=== PATIENT | male | born 1955 | race Caucasian/White ===

== ENCOUNTER 2023-03-23 22:51 | Inpatient (IN) | payer OTHER, MEDICARE ==
[2023-03-23] MEDS ORDERED: SODIUM CHLORIDE IV ONE (23:28)
[2023-03-24] MEDS ORDERED: VANCOMYCIN 1 GM in D5W (PRE-DOCKED) 1,000 MG/250 ML (RESTRICTED TO ID ONLY IVPB ONE (00:28)
[2023-03-24] MEDS ORDERED: VANCOMYCIN/WATER FOR INJ (PEG) 1,000 MG/200 ML BAG IVPB ONE (00:29)
[2023-03-24 00:34] LABS: VENOUS BASE EXCESS 2.8 mmol/L (-2-2); VENOUS O2 SATURATION 80.4 % (70-80); VENOUS PCO2 39.6 mmHg (38-52); VENOUS PH 7.451 (7.310-7.410)
[2023-03-24 00:36] LABS: HEMATOCRIT 24.2 % (35.4-49); HEMOGLOBIN 7.8 GM/dL (11.7-16.9); MCH 27.1 pg (25.7-33.7); MCHC 32.1 g/dl (32.0-35.9); MEAN CELL VOLUME 84.6 fl (80-96); MEAN PLT VOLUME 8.3 fl (7.5-11.1); PLATELET COUNT 380 10^3/uL (134-434); RBC 2.86 M/mm3 (4.00-5.60); RDW 16.8 % (11.9-15.9); WHITE BLOOD COUNT 6.6 K/mm3 (4.0-10.0)
[2023-03-24] MEDS ORDERED: ACETAMINOPHEN 1000 MG/100 ML BAG IVPB ONE (00:45)
[2023-03-24 00:52] LABS: CHLORIDE 105 mmol/L (98-107); POTASSIUM 4.9 mmol/L (3.5-5.1); SODIUM 141 mmol/L (136-145)
[2023-03-24 00:54] LABS: CALCIUM 8.3 mg/dL (8.5-10.1)
[2023-03-24 00:55] LABS: ALBUMIN 1.4 g/dl (3.4-5.0); ANION GAP 10 MMOL/L (8-16); BLOOD UREA NITROGEN 52.3 mg/dL (7-18); CO2 25 mmol/L (21-32)
[2023-03-24 00:58] LABS: CREATININE 1.3 mg/dL (0.55-1.3); SGOT/AST 16 U/L (15-37); SGPT/ALT 14 U/L (13-61)
[2023-03-24 00:59] LABS: BILIRUBIN,TOTAL 0.4 mg/dL (0.2-1)
[2023-03-24] MEDS ORDERED: ACETAMINOPHEN INJECTION 100 ML IVPB ONE (00:59)
[2023-03-24 01:00] LABS: TOT PROT 4.3 g/dl (6.4-8.2)
[2023-03-24 01:01] LABS: ALK PHOS 104 U/L (45-117)
[2023-03-24 01:08] LABS: GLUCOSE,RANDOM 451 mg/dL (74-106); LACTIC ACID 5.5 mmol/L (0.4-2.0)
[2023-03-24 01:51] LABS: ANISOCYTOSIS 2+; MACROCYTOSIS 0; OVALOCYTE 2+; TEAR DROP CELLS 1+
[2023-03-24] MEDS ORDERED: LACTATED RINGERS SOLUTION 1000 ML INFUS.BAG IV ONE ×3 (02:19→16:05)
[2023-03-24 03:05] LABS: EPI CELLS >36 /uL (0-25.1); HYALINE CASTS 2 /uL (0-3.1); PH,URINE 5.5 (5.0-8.0); URINE APPEARANCE Error; URINE BACTERIA 64 /uL (0-1359); URINE BILIRUBIN NEGATIVE (NEGATIVE); URINE COLOR DK YELLOW; URINE GLUCOSE (UA) NEGATIVE (NEGATIVE); URINE KETONE TRACE (NEGATIVE); URINE LEUK ESTERASE 2+ (NEGATIVE); URINE NITRITE NEGATIVE (NEGATIVE); URINE PROTEIN 2+ (NEGATIVE); URINE WBC 364 /uL (0-25.8)
[2023-03-24 03:43] LABS: URINE CRYSTALS MODERATE /hpf; URINE RBC 89.4 /uL (0-23.9); YEAST MODERATE (NEGATIVE)
[2023-03-24] MEDS ORDERED: VANCOMYCIN IVPB SCH ×2 (03:45→10:00)
[2023-03-24] MEDS ORDERED: WATER IVPB SCH ×2 (03:45→10:00)
[2023-03-24] MEDS ORDERED: DEXTROSE 5% IVPB SCH ×2 (03:45→10:00)
[2023-03-24 03:47] LABS: LACTIC ACID 4.7 mmol/L (0.4-2.0)
[2023-03-24] MEDS ORDERED: PIPERACILLIN/TAZOB 3.375 GM 3.375 GM/50 ML BAG IVPB ONE (04:26)
[2023-03-24] MEDS ORDERED: SODIUM CHLORIDE 1,000 ML IV SCH (04:45)
[2023-03-24] MEDS: PIPERACILLIN/TAZOB 3.375 GM 3.375 GM in DEXTROSE 5%-WATER - 50 ML IVPB SCH ×3 (04:46→18:14)
[2023-03-24] MEDS: PIPERACILLIN/TAZOB 3.375 GM 3.375 GM/50 ML BAG IVPB SCH ×2 (07:47→11:03)
[2023-03-24] MEDS: INSULIN SLIDING SCALE (NOVOLOG) 1 VIAL SQ SCH ×4 (07:50→21:12)
[2023-03-24 08:14] LABS: HEMATOCRIT 22.8 % (35.4-49); HEMOGLOBIN 7.5 GM/dL (11.7-16.9); MCHC 32.7 g/dl (32.0-35.9); MEAN CELL VOLUME 85.4 fl (80-96); MEAN PLT VOLUME 8.8 fl (7.5-11.1); PLATELET COUNT 365 10^3/uL (134-434); RBC 2.67 M/mm3 (4.00-5.60); RDW 16.2 % (11.9-15.9)
[2023-03-24 08:36] LABS: LACTIC ACID 2.8 mmol/L (0.4-2.0)
[2023-03-24 08:37] LABS: POTASSIUM 5.1 mmol/L (3.5-5.1)
[2023-03-24 08:46] LABS: ALBUMIN 1.4 g/dl (3.4-5.0); BLOOD UREA NITROGEN 55.4 mg/dL (7-18); CALCIUM 8.1 mg/dL (8.5-10.1); MAGNESIUM 2.4 mg/dL (1.8-2.4)
[2023-03-24 08:49] LABS: CREATININE 1.1 mg/dL (0.55-1.3); PHOSPHOROUS 2.8 mg/dL (2.5-4.9)
[2023-03-24 08:50] LABS: BILIRUBIN,TOTAL 0.6 mg/dL (0.2-1); TOT PROT 4.3 g/dl (6.4-8.2)
[2023-03-24] MEDS ORDERED: SODIUM CHLORIDE 500 ML IV STA ×2 (09:13→12:42)
[2023-03-24] MEDS ORDERED: PATIENT'S OWN MEDICATION (NON-FORMULARY) (Lactose-Reduced Food/Fiber [Jevity 1.5 Cal Liqui PEG SCH (10:00)
[2023-03-24] MEDS ORDERED: PIPERACILLIN/TAZOB 3.375 GM 3.375 GM in DEXTROSE 5%-WATER - 50 ML IVPB SCH (11:00)
[2023-03-24] MEDS: APIXABAN 5 MG TABLET PEG SCH ×2 (11:57→21:12)
[2023-03-24] MEDS: VANCOMYCIN/WATER FOR INJ (PEG) 1,000 MG/200 ML BAG IVPB SCH (13:19)
[2023-03-24] MEDS ORDERED: LACTATED RINGERS SOLUTION 1,000 ML/1,000 ML INFUS.BAG IV SCH (14:15)
[2023-03-24] MEDS: LACTATED RINGERS SOLUTION 1,000 ML/1,000 ML INFUS.BAG IV SCH (18:13)
[2023-03-24] MEDS ORDERED: INSULIN (NOVOLOG) ASPART 100 UNITS/ML 10ML VIAL ONE (21:10)
[2023-03-24] MEDS: ATORVASTATIN CA 20 MG TABLET (FP) PEG SCH (21:12)
[2023-03-25] MEDS ORDERED: VANCOMYCIN/WATER FOR INJ (PEG) 750 MG/150 ML BAG IVPB SCH ×2
[2023-03-25] MEDS: VANCOMYCIN/WATER FOR INJ (PEG) 1,000 MG/200 ML BAG IVPB SCH (01:35)
[2023-03-25] MEDS: PIPERACILLIN/TAZOB 3.375 GM 3.375 GM in DEXTROSE 5%-WATER - 50 ML IVPB SCH ×3 (02:24→16:59)
[2023-03-25] MEDS ORDERED: TUBE FEED DECLOGGING SOLUTION 12,000 UNITS GT ONE (03:00)
[2023-03-25] MEDS: INSULIN SLIDING SCALE (NOVOLOG) 1 VIAL SQ SCH ×4 (06:35→21:14)
[2023-03-25] MEDS ORDERED: INSULIN (NOVOLOG) ASPART 100 UNITS/ML 10ML VIAL ONE ×2 (06:36→21:02)
[2023-03-25 08:06] LABS: POTASSIUM 4.1 mmol/L (3.5-5.1)
[2023-03-25 08:16] LABS: ALBUMIN 1.4 g/dl (3.4-5.0); BLOOD UREA NITROGEN 43.5 mg/dL (7-18)
[2023-03-25 08:17] LABS: CREATININE 0.7 mg/dL (0.55-1.3); MAGNESIUM 2.3 mg/dL (1.8-2.4); PHOSPHOROUS 2.6 mg/dL (2.5-4.9)
[2023-03-25 08:19] LABS: BILIRUBIN,TOTAL 0.3 mg/dL (0.2-1); TOT PROT 4.1 g/dl (6.4-8.2)
[2023-03-25] MEDS: METOPROLOL TARTRATE 5 MG/5 ML VIAL IVPUSH PRN ×2 (08:23→12:21)
[2023-03-25] MEDS: PANTOPRAZOLE SODIUM 40 MG VIAL IVPUSH SCH (09:26)
[2023-03-25] MEDS: APIXABAN 5 MG TABLET PEG SCH ×2 (09:26→21:14)
[2023-03-25 11:09] LABS: HEMATOCRIT 23.9 % (35.4-49); HEMOGLOBIN 7.6 GM/dL (11.7-16.9); MCH 26.9 pg (25.7-33.7); MCHC 31.7 g/dl (32.0-35.9); MEAN CELL VOLUME 84.6 fl (80-96); PLATELET COUNT 375 10^3/uL (134-434); RBC 2.82 M/mm3 (4.00-5.60); WHITE BLOOD COUNT 4.5 K/mm3 (4.0-10.0)
[2023-03-25 11:12] LABS: INR 1.99 (0.83-1.09); PROTHROMBIN TIME (PATIENT) 22.9 SEC (9.7-13.0)
[2023-03-25 11:40] LABS: ANISOCYTOSIS 0; MACROCYTOSIS 0
[2023-03-25] MEDS: COLLAGENASE CLOSTRIDIUM HIST. 30 GRAMS TUBE TP SCH (11:43)
[2023-03-25] MEDS: VANCOMYCIN ORAL SOLUTION 125 MG/2.5 ML PO SCH ×2 (11:53→16:59)
[2023-03-25] MEDS: LACTATED RINGERS SOLUTION 1,000 ML/1,000 ML INFUS.BAG IV SCH (16:09)
[2023-03-25] MEDS: AMINO ACIDS/PROTEIN HYDROLYS 30 ML LIQUID.PKT PEG SCH (16:53)
[2023-03-25] MEDS: ATORVASTATIN CA 20 MG TABLET (FP) PEG SCH (21:14)
[2023-03-26] MEDS: VANCOMYCIN ORAL SOLUTION 125 MG/2.5 ML PO SCH ×4 (00:02→17:09)
[2023-03-26] MEDS: PIPERACILLIN/TAZOB 3.375 GM 3.375 GM in DEXTROSE 5%-WATER - 50 ML IVPB SCH ×2 (01:02→09:04)
[2023-03-26] MEDS ORDERED: ACETAMINOPHEN 1000 MG/100 ML BAG IVPB ONE (05:53)
[2023-03-26] MEDS: INSULIN SLIDING SCALE (NOVOLOG) 1 VIAL SQ SCH ×4 (06:03→22:10)
[2023-03-26] MEDS ORDERED: INSULIN (NOVOLOG) ASPART 100 UNITS/ML 10ML VIAL ONE (06:08)
[2023-03-26 07:53] LABS: HEMATOCRIT 21.9 % (35.4-49); MCH 26.7 pg (25.7-33.7); MEAN CELL VOLUME 86.2 fl (80-96); MEAN PLT VOLUME 9.2 fl (7.5-11.1); PLATELET COUNT 335 10^3/uL (134-434); RBC 2.54 M/mm3 (4.00-5.60); WHITE BLOOD COUNT 4.8 K/mm3 (4.0-10.0)
[2023-03-26 08:07] LABS: POTASSIUM 3.7 mmol/L (3.5-5.1)
[2023-03-26 08:12] LABS: CALCIUM 8.4 mg/dL (8.5-10.1)
[2023-03-26 08:15] LABS: ALBUMIN 1.2 g/dl (3.4-5.0); BLOOD UREA NITROGEN 38.8 mg/dL (7-18); MAGNESIUM 2.3 mg/dL (1.8-2.4)
[2023-03-26 08:21] LABS: BILIRUBIN,TOTAL 0.2 mg/dL (0.2-1); TOT PROT 3.8 g/dl (6.4-8.2)
[2023-03-26 08:22] LABS: HEMOGLOBIN 6.8 GM/dL (11.7-16.9)
[2023-03-26] MEDS ORDERED: LACTATED RINGERS SOLUTION 1,000 ML/1,000 ML INFUS.BAG IV SCH (08:57)
[2023-03-26] MEDS: APIXABAN 5 MG TABLET PEG SCH ×2 (09:04→21:40)
[2023-03-26] MEDS: ASCORBIC ACID 500 MG/5 ML UNIT DOSE CUP PEG SCH (09:04)
[2023-03-26] MEDS: AMINO ACIDS/PROTEIN HYDROLYS 30 ML LIQUID.PKT PEG SCH ×2 (09:04→17:09)
[2023-03-26] MEDS: PANTOPRAZOLE SODIUM 40 MG VIAL IVPUSH SCH (09:04)
[2023-03-26] MEDS: ZINC SULFATE 220 MG CAPSULE (FP) PEG SCH (09:04)
[2023-03-26] MEDS: COLLAGENASE CLOSTRIDIUM HIST. 30 GRAMS TUBE TP SCH (09:13)
[2023-03-26 10:14] LABS: ANISOCYTOSIS 1+; MACROCYTOSIS 0
[2023-03-26] MEDS: MEROPENEM 1 GM in DEXTROSE 5%-WATER 100 ML IVPB SCH ×2 (11:05→18:41)
[2023-03-26] MEDS: METOPROLOL TARTRATE 5 MG/5 ML VIAL IVPUSH PRN (20:05)
[2023-03-26] MEDS ORDERED: ACETAMINOPHEN INJECTION 100 ML IVPB ONE (20:13)
[2023-03-26] MEDS: ALBUTEROL SO4 0.5 % INH SOLN 2.5 MG/0.5 ML VIAL.NEB. NEB PRN (21:30)
[2023-03-26] MEDS: ATORVASTATIN CA 20 MG TABLET (FP) PEG SCH (21:40)
[2023-03-27] MEDS: VANCOMYCIN ORAL SOLUTION 125 MG/2.5 ML PO SCH ×4 (00:36→17:01)
[2023-03-27] MEDS ORDERED: MEROPENEM 1 GM VIAL (RESTRICTED TO ID) IVPB ONE (01:30)
[2023-03-27] MEDS: MEROPENEM 1 GM in DEXTROSE 5%-WATER 100 ML IVPB SCH ×3 (02:36→17:01)
[2023-03-27] MEDS: METOPROLOL TARTRATE 5 MG/5 ML VIAL IVPUSH PRN (05:41)
[2023-03-27] MEDS: ALBUTEROL SO4 0.5 % INH SOLN 2.5 MG/0.5 ML VIAL.NEB. NEB PRN ×2 (06:07→20:48)
[2023-03-27] MEDS ORDERED: SODIUM CHLORIDE 500 ML IV STA (06:31)
[2023-03-27] MEDS: INSULIN SLIDING SCALE (NOVOLOG) 1 VIAL SQ SCH ×4 (06:48→21:23)
[2023-03-27] MEDS ORDERED: INSULIN (NOVOLOG) ASPART 100 UNITS/ML 10ML VIAL ONE (06:54)
[2023-03-27 07:09] LABS: HEMATOCRIT 26.7 % (35.4-49); HEMOGLOBIN 8.4 GM/dL (11.7-16.9); MCH 27.1 pg (25.7-33.7); MCHC 31.2 g/dl (32.0-35.9); MEAN CELL VOLUME 86.8 fl (80-96); MEAN PLT VOLUME 9.8 fl (7.5-11.1); PLATELET COUNT 248 10^3/uL (134-434); RBC 3.08 M/mm3 (4.00-5.60); RDW 16.7 % (11.9-15.9); WHITE BLOOD COUNT 9.1 K/mm3 (4.0-10.0)
[2023-03-27 07:35] LABS: POTASSIUM 4.1 mmol/L (3.5-5.1)
[2023-03-27 07:38] LABS: CALCIUM 8.2 mg/dL (8.5-10.1)
[2023-03-27 07:39] LABS: ALBUMIN 1.4 g/dl (3.4-5.0); BLOOD UREA NITROGEN 40.9 mg/dL (7-18)
[2023-03-27 07:42] LABS: CREATININE 0.9 mg/dL (0.55-1.3)
[2023-03-27 07:45] LABS: BILIRUBIN,TOTAL 0.4 mg/dL (0.2-1)
[2023-03-27 09:12] LABS: ANISOCYTOSIS 0; MACROCYTOSIS 0
[2023-03-27] MEDS: AMINO ACIDS/PROTEIN HYDROLYS 30 ML LIQUID.PKT PEG SCH (09:19)
[2023-03-27] MEDS: ZINC SULFATE 220 MG CAPSULE (FP) PEG SCH (09:19)
[2023-03-27] MEDS: MIDODRINE HCL 5 MG TABLET GT SCH ×3 (09:19→17:02)
[2023-03-27] MEDS: ASCORBIC ACID 500 MG/5 ML UNIT DOSE CUP PEG SCH (09:19)
[2023-03-27] MEDS: APIXABAN 5 MG TABLET PEG SCH ×2 (09:19→21:22)
[2023-03-27] MEDS: PANTOPRAZOLE SODIUM 40 MG VIAL IVPUSH SCH (09:19)
[2023-03-27] MEDS: COLLAGENASE CLOSTRIDIUM HIST. 30 GRAMS TUBE TP SCH (09:20)
[2023-03-27] MEDS ORDERED: ACETAMINOPHEN 1000 MG/100 ML BAG IVPB PRN (10:50)
[2023-03-27] MEDS ORDERED: VANCOMYCIN/WATER FOR INJ (PEG) 1,000 MG/200 ML BAG IVPB ONE (10:53)
[2023-03-27] MEDS: ATORVASTATIN CA 20 MG TABLET (FP) PEG SCH (21:22)
[2023-03-27 21:43] LABS: BASO % 0.1 % (0-2.0); HEMATOCRIT 28.5 % (35.4-49); LYMPH % 2.8 % (8-40); MCH 26.9 pg (25.7-33.7); MCHC 31.7 g/dl (32.0-35.9); MEAN PLT VOLUME 9.8 fl (7.5-11.1); MONO % 5.2 % (3.8-10.2); NEUT % 88.9 % (42.8-82.8); PLATELET COUNT 234 10^3/uL (134-434); RBC 3.35 M/mm3 (4.00-5.60); WHITE BLOOD COUNT 6.5 K/mm3 (4.0-10.0)
[2023-03-27 22:56] LABS: ANISOCYTOSIS 1+; MACROCYTOSIS 0; PLATELET ESTIMATE NORMAL
[2023-03-28] MEDS: VANCOMYCIN ORAL SOLUTION 125 MG/2.5 ML PO SCH ×5 (00:59→23:06)
[2023-03-28] MEDS: MEROPENEM 1 GM in DEXTROSE 5%-WATER 100 ML IVPB SCH ×3 (01:00→18:03)
[2023-03-28] MEDS: INSULIN SLIDING SCALE (NOVOLOG) 1 VIAL SQ SCH ×4 (06:20→21:13)
[2023-03-28 06:58] LABS: HEMATOCRIT 28.8 % (35.4-49); HEMOGLOBIN 9.1 GM/dL (11.7-16.9); MCH 27.1 pg (25.7-33.7); MCHC 31.6 g/dl (32.0-35.9); MEAN PLT VOLUME 9.7 fl (7.5-11.1); PLATELET COUNT 257 10^3/uL (134-434); RBC 3.35 M/mm3 (4.00-5.60); RDW 16.9 % (11.9-15.9); WHITE BLOOD COUNT 5.8 K/mm3 (4.0-10.0)
[2023-03-28 07:23] LABS: POTASSIUM 3.7 mmol/L (3.5-5.1)
[2023-03-28 07:25] LABS: CALCIUM 7.8 mg/dL (8.5-10.1)
[2023-03-28 07:26] LABS: ALBUMIN 1.3 g/dl (3.4-5.0); BLOOD UREA NITROGEN 33.8 mg/dL (7-18)
[2023-03-28 07:30] LABS: BILIRUBIN,TOTAL 0.2 mg/dL (0.2-1); TOT PROT 3.8 g/dl (6.4-8.2)
[2023-03-28 07:38] LABS: CREATININE 0.7 mg/dL (0.55-1.3)
[2023-03-28 08:43] LABS: ANISOCYTOSIS 0; MACROCYTOSIS 0
[2023-03-28] MEDS: AMINO ACIDS/PROTEIN HYDROLYS 30 ML LIQUID.PKT PEG SCH (08:45)
[2023-03-28] MEDS: METOPROLOL TARTRATE 5 MG/5 ML VIAL IVPUSH PRN ×2 (09:03→15:52)
[2023-03-28] MEDS: PANTOPRAZOLE SODIUM 40 MG VIAL IVPUSH SCH (09:03)
[2023-03-28] MEDS: COLLAGENASE CLOSTRIDIUM HIST. 30 GRAMS TUBE TP SCH (09:05)
[2023-03-28] MEDS: APIXABAN 5 MG TABLET PEG SCH ×2 (09:05→21:04)
[2023-03-28] MEDS: MIDODRINE HCL 5 MG TABLET GT SCH ×3 (09:05→17:22)
[2023-03-28] MEDS: ASCORBIC ACID 500 MG/5 ML UNIT DOSE CUP PEG SCH (09:05)
[2023-03-28] MEDS: ZINC SULFATE 220 MG CAPSULE (FP) PEG SCH (09:05)
[2023-03-28] MEDS ORDERED: INSULIN (NOVOLOG) ASPART 100 UNITS/ML 10ML VIAL ONE ×2 (11:41→17:48)
[2023-03-28] MEDS: INSULIN (LEVEMIR) 100 UNITS/ML UNITS SQ SCH ×2 (12:04→21:18)
[2023-03-28] MEDS: oxyCODONE HCL 5 MG TABLET GT PRN (13:31)
[2023-03-28] MEDS: ATORVASTATIN CA 20 MG TABLET (FP) PEG SCH (21:04)
[2023-03-29] MEDS: METOPROLOL TARTRATE 5 MG/5 ML VIAL IVPUSH PRN (02:07)
[2023-03-29] MEDS: MEROPENEM 1 GM in DEXTROSE 5%-WATER 100 ML IVPB SCH ×3 (02:08→17:26)
[2023-03-29] MEDS: oxyCODONE HCL 5 MG TABLET GT PRN (03:25)
[2023-03-29] MEDS: VANCOMYCIN ORAL SOLUTION 125 MG/2.5 ML PO SCH (05:24)
[2023-03-29] MEDS: INSULIN SLIDING SCALE (NOVOLOG) 1 VIAL SQ SCH ×4 (06:24→21:41)
[2023-03-29] MEDS: INSULIN (LEVEMIR) 100 UNITS/ML UNITS SQ SCH ×2 (06:24→21:42)
[2023-03-29 08:01] LABS: HEMATOCRIT 30.4 % (35.4-49); HEMOGLOBIN 9.3 GM/dL (11.7-16.9); MCH 26.5 pg (25.7-33.7); MCHC 30.5 g/dl (32.0-35.9); MEAN CELL VOLUME 86.7 fl (80-96); MEAN PLT VOLUME 9.9 fl (7.5-11.1); PLATELET COUNT 221 10^3/uL (134-434); RBC 3.51 M/mm3 (4.00-5.60); RDW 17.8 % (11.9-15.9); WHITE BLOOD COUNT 15.2 K/mm3 (4.0-10.0)
[2023-03-29 08:29] LABS: POTASSIUM 4.3 mmol/L (3.5-5.1)
[2023-03-29 08:31] LABS: ARTERIAL BLD GAS O2 SATURATION 94.9 % (95-98); ARTERIAL BLOOD GAS BASE EXCESS -0.8 mmol/L (-2-2); ARTERIAL BLOOD GAS PO2 83.9 mmHg (80-100); ARTERIAL BLOOD GAS pH 7.286 (7.350-7.450)
[2023-03-29 08:32] LABS: ALLENS TEST POSITIVE; VENT MODE AC
[2023-03-29 08:32] LABS: ALBUMIN 1.4 g/dl (3.4-5.0); BLOOD UREA NITROGEN 42.4 mg/dL (7-18); MAGNESIUM 2.3 mg/dL (1.8-2.4)
[2023-03-29 08:33] LABS: VENT RATE 14
[2023-03-29 08:35] LABS: CREATININE 0.9 mg/dL (0.55-1.3)
[2023-03-29 08:36] LABS: TOT PROT 4.1 g/dl (6.4-8.2)
[2023-03-29 08:37] LABS: BILIRUBIN,TOTAL 0.4 mg/dL (0.2-1)
[2023-03-29] MEDS ORDERED: LACTATED RINGERS SOLUTION 1,000 ML/1,000 ML INFUS.BAG IV ONE (08:45)
[2023-03-29] MEDS ORDERED: DEXTROSE 5%-WATER - 1,000 ML IV SCH ×2 (09:00→19:01)
[2023-03-29 09:31] LABS: ANISOCYTOSIS 0; MACROCYTOSIS 0
[2023-03-29] MEDS: ZINC SULFATE 220 MG CAPSULE (FP) PEG SCH (09:48)
[2023-03-29] MEDS: AMINO ACIDS/PROTEIN HYDROLYS 30 ML LIQUID.PKT PEG SCH (09:48)
[2023-03-29] MEDS: PANTOPRAZOLE SODIUM 40 MG VIAL IVPUSH SCH (09:48)
[2023-03-29] MEDS: MIDODRINE HCL 5 MG TABLET GT SCH ×3 (09:48→17:24)
[2023-03-29] MEDS: APIXABAN 5 MG TABLET PEG SCH (09:49)
[2023-03-29] MEDS: COLLAGENASE CLOSTRIDIUM HIST. 30 GRAMS TUBE TP SCH (09:49)
[2023-03-29] MEDS: ASCORBIC ACID 500 MG/5 ML UNIT DOSE CUP PEG SCH (09:49)
[2023-03-29 11:21] LABS: HEMATOCRIT 22.7 % (35.4-49); HEMOGLOBIN 7.2 GM/dL (11.7-16.9); MCH 27.1 pg (25.7-33.7); MCHC 31.9 g/dl (32.0-35.9); MEAN CELL VOLUME 84.9 fl (80-96); MEAN PLT VOLUME 9.5 fl (7.5-11.1); PLATELET COUNT 172 10^3/uL (134-434); RBC 2.68 M/mm3 (4.00-5.60); RDW 17.3 % (11.9-15.9); WHITE BLOOD COUNT 14.5 K/mm3 (4.0-10.0)
[2023-03-29 11:49] LABS: ANISOCYTOSIS 1+; MACROCYTOSIS 0
[2023-03-29] MEDS ORDERED: VANCOMYCIN ORAL SOLUTION 125 MG/2.5 ML GT SCH ×2 (12:00→15:10)
[2023-03-29] MEDS ORDERED: NOREPINEPHRINE BITARTRATE 4 MG/4 ML ML IV ONE (12:03)
[2023-03-29] MEDS: NOREPINEPHRINE BITARTRATE/D5W 8 MG/250 ML BAG IVPB SCH (12:15)
[2023-03-29 12:42] LABS: INR 1.52 (0.83-1.09); PROTHROMBIN TIME (PATIENT) 17.6 SEC (9.7-13.0)
[2023-03-29] MEDS: MUPIROCIN 2% TOPICAL OINTMENT FOR DECOLONIZATION NS SCH ×2 (14:21→23:31)
[2023-03-29] MEDS: PANTOPRAZOLE SODIUM 80 MG in SODIUM CHLORIDE 100 ML IVPB SCH (17:25)
[2023-03-29] MEDS ORDERED: ALBUTEROL SO4 0.5 % INH SOLN 2.5 MG/0.5 ML VIAL.NEB. NEB PRN (19:01)
[2023-03-29] MEDS ORDERED: INSULIN (NOVOLOG) ASPART 100 UNITS/ML 10ML VIAL ONE (21:39)
[2023-03-29] MEDS: CHLORHEXIDINE GLUCONATE 4% CLEANSER FOR DECOLONIZATION TP SCH (21:43)
[2023-03-29] MEDS ORDERED: PANTOPRAZOLE SODIUM 40 MG VIAL IVPUSH SCH (22:00)
[2023-03-29 23:13] LABS: HEMATOCRIT 28.2 % (35.4-49); HEMOGLOBIN 9.1 GM/dL (11.7-16.9); MCHC 32.4 g/dl (32.0-35.9); MEAN CELL VOLUME 83.3 fl (80-96); MEAN PLT VOLUME 9.1 fl (7.5-11.1); PLATELET COUNT 203 10^3/uL (134-434); RBC 3.39 M/mm3 (4.00-5.60); RDW 16.5 % (11.9-15.9); WHITE BLOOD COUNT 9.9 K/mm3 (4.0-10.0)
[2023-03-29] MEDS: VANCOMYCIN 250 MG/5 ML ORAL SOLUTION GT SCH (23:31)
[2023-03-30] MEDS: MEROPENEM 1 GM in DEXTROSE 5%-WATER 100 ML IVPB SCH ×3 (02:35→17:26)
[2023-03-30] MEDS: PANTOPRAZOLE SODIUM 80 MG in SODIUM CHLORIDE 100 ML IVPB SCH ×3 (02:41→23:11)
[2023-03-30] MEDS ORDERED: DEXTROSE 50%-WATER 25 GM/50 ML DISP.SYRIN IVPUSH ONE (05:47)
[2023-03-30] MEDS ORDERED: DEXTROSE 50%-WATER 25 GM/50 ML DISP.SYRIN ONE (05:50)
[2023-03-30] MEDS: VANCOMYCIN 250 MG/5 ML ORAL SOLUTION GT SCH ×3 (06:01→17:26)
[2023-03-30] MEDS: INSULIN (LEVEMIR) 100 UNITS/ML UNITS SQ SCH (06:02)
[2023-03-30] MEDS: INSULIN SLIDING SCALE (NOVOLOG) 1 VIAL SQ SCH ×4 (06:02→21:18)
[2023-03-30 07:00] LABS: HEMATOCRIT 29.9 % (35.4-49); HEMOGLOBIN 9.6 GM/dL (11.7-16.9); MCH 27.1 pg (25.7-33.7); MCHC 32.1 g/dl (32.0-35.9); MEAN CELL VOLUME 84.5 fl (80-96); MEAN PLT VOLUME 10.4 fl (7.5-11.1); PLATELET COUNT 214 10^3/uL (134-434); RBC 3.54 M/mm3 (4.00-5.60); WHITE BLOOD COUNT 11.5 K/mm3 (4.0-10.0)
[2023-03-30 07:24] LABS: CHLORIDE 115 mmol/L (98-107); POTASSIUM 3.8 mmol/L (3.5-5.1); SODIUM 150 mmol/L (136-145)
[2023-03-30 07:26] LABS: ALBUMIN 1.2 g/dl (3.4-5.0); CALCIUM 7.8 mg/dL (8.5-10.1)
[2023-03-30 07:27] LABS: ANION GAP 4 MMOL/L (8-16); BLOOD UREA NITROGEN 34.3 mg/dL (7-18); CO2 31 mmol/L (21-32); MAGNESIUM 2.2 mg/dL (1.8-2.4)
[2023-03-30 07:30] LABS: CREATININE 0.6 mg/dL (0.55-1.3); SGOT/AST 17 U/L (15-37); SGPT/ALT 11 U/L (13-61)
[2023-03-30 07:31] LABS: BILIRUBIN,TOTAL 0.4 mg/dL (0.2-1); TOT PROT 3.5 g/dl (6.4-8.2)
[2023-03-30 07:51] LABS: ALK PHOS 101 U/L (45-117); GLUCOSE,RANDOM 41 mg/dL (74-106)
[2023-03-30 08:38] LABS: ANISOCYTOSIS 0; HELMET CELLS 0; HOWELL-JOLLY BODIES 0; MACROCYTOSIS 0; OVALOCYTE 0; ROULEAU 0; SICKELED CELLS 0; TARGET CELLS 0; TEAR DROP CELLS 0; TOXIC GRANULATION 0
[2023-03-30] MEDS: COLLAGENASE CLOSTRIDIUM HIST. 30 GRAMS TUBE TP SCH (09:14)
[2023-03-30] MEDS: MUPIROCIN 2% TOPICAL OINTMENT FOR DECOLONIZATION NS SCH ×2 (09:15→21:19)
[2023-03-30 09:58] LABS: INR 1.25 (0.83-1.09); PROTHROMBIN TIME (PATIENT) 14.5 SEC (9.7-13.0)
[2023-03-30] MEDS: D5-1/2NS+10 MEQ KCL - 10 MEQ/1,000 ML INFUS.BAG IV SCH (11:01)
[2023-03-30] MEDS: NOREPINEPHRINE BITARTRATE/D5W 8 MG/250 ML BAG IVPB SCH (13:00)
[2023-03-30 18:48] LABS: HEMATOCRIT 30.7 % (35.4-49); HEMOGLOBIN 9.9 GM/dL (11.7-16.9); MCH 27.2 pg (25.7-33.7); MCHC 32.3 g/dl (32.0-35.9); MEAN CELL VOLUME 84.2 fl (80-96); MEAN PLT VOLUME 10.3 fl (7.5-11.1); PLATELET COUNT 226 10^3/uL (134-434); RBC 3.64 M/mm3 (4.00-5.60); RDW 17.2 % (11.9-15.9); WHITE BLOOD COUNT 7.8 K/mm3 (4.0-10.0)
[2023-03-30] MEDS: CHLORHEXIDINE GLUCONATE 4% CLEANSER FOR DECOLONIZATION TP SCH (21:19)
[2023-03-31] MEDS: VANCOMYCIN 250 MG/5 ML ORAL SOLUTION GT SCH ×4 (00:10→18:21)
[2023-03-31] MEDS: D5-1/2NS+10 MEQ KCL - 10 MEQ/1,000 ML INFUS.BAG IV SCH (00:52)
[2023-03-31] MEDS: MEROPENEM 1 GM in DEXTROSE 5%-WATER 100 ML IVPB SCH ×3 (02:11→17:11)
[2023-03-31] MEDS: INSULIN SLIDING SCALE (NOVOLOG) 1 VIAL SQ SCH ×4 (06:16→21:16)
[2023-03-31 07:22] LABS: HEMATOCRIT 28.8 % (35.4-49); HEMOGLOBIN 9.4 GM/dL (11.7-16.9); MCH 27.5 pg (25.7-33.7); MCHC 32.6 g/dl (32.0-35.9); MEAN CELL VOLUME 84.3 fl (80-96); MEAN PLT VOLUME 10.1 fl (7.5-11.1); PLATELET COUNT 223 10^3/uL (134-434); RBC 3.42 M/mm3 (4.00-5.60); RDW 17.2 % (11.9-15.9); WHITE BLOOD COUNT 6.3 K/mm3 (4.0-10.0)
[2023-03-31] MEDS: PANTOPRAZOLE SODIUM 80 MG in SODIUM CHLORIDE 100 ML IVPB SCH ×2 (09:17→21:17)
[2023-03-31] MEDS: MUPIROCIN 2% TOPICAL OINTMENT FOR DECOLONIZATION NS SCH ×2 (09:17→21:17)
[2023-03-31] MEDS: COLLAGENASE CLOSTRIDIUM HIST. 30 GRAMS TUBE TP SCH (09:17)
[2023-03-31 10:40] LABS: POTASSIUM 3.9 mmol/L (3.5-5.1)
[2023-03-31 10:42] LABS: CALCIUM 7.4 mg/dL (8.5-10.1)
[2023-03-31 10:43] LABS: ALBUMIN 1.2 g/dl (3.4-5.0); BLOOD UREA NITROGEN 21.1 mg/dL (7-18)
[2023-03-31 10:46] LABS: CREATININE 0.5 mg/dL (0.55-1.3); PHOSPHOROUS 1.7 mg/dL (2.5-4.9)
[2023-03-31 10:47] LABS: TOT PROT 3.4 g/dl (6.4-8.2)
[2023-03-31 10:48] LABS: BILIRUBIN,TOTAL 0.5 mg/dL (0.2-1)
[2023-03-31] MEDS: NOREPINEPHRINE BITARTRATE/D5W 8 MG/250 ML BAG IVPB SCH (12:39)
[2023-03-31] MEDS ORDERED: INSULIN (NOVOLOG) ASPART 100 UNITS/ML 10ML VIAL ONE (20:26)
[2023-03-31] MEDS: CHLORHEXIDINE GLUCONATE 4% CLEANSER FOR DECOLONIZATION TP SCH (21:16)
[2023-04-01] MEDS: VANCOMYCIN 250 MG/5 ML ORAL SOLUTION GT SCH ×4 (00:06→18:29)
[2023-04-01] MEDS: MEROPENEM 1 GM in DEXTROSE 5%-WATER 100 ML IVPB SCH ×3 (01:50→18:28)
[2023-04-01] MEDS: INSULIN SLIDING SCALE (NOVOLOG) 1 VIAL SQ SCH ×2 (06:11→14:06)
[2023-04-01] MEDS: PANTOPRAZOLE SODIUM 80 MG in SODIUM CHLORIDE 100 ML IVPB SCH (06:11)
[2023-04-01 07:35] LABS: BASO % 0.1 % (0-2.0); EOS % 0.9 % (0-4.5); HEMATOCRIT 28.2 % (35.4-49); HEMOGLOBIN 9.1 GM/dL (11.7-16.9); LYMPH % 4.2 % (8-40); MCH 27.4 pg (25.7-33.7); MCHC 32.1 g/dl (32.0-35.9); MEAN CELL VOLUME 85.5 fl (80-96); MEAN PLT VOLUME 10.3 fl (7.5-11.1); MONO % 4.8 % (3.8-10.2); PLATELET COUNT 224 10^3/uL (134-434); RDW 17.5 % (11.9-15.9); WHITE BLOOD COUNT 6.7 K/mm3 (4.0-10.0)
[2023-04-01 08:02] LABS: BLOOD UREA NITROGEN 19.8 mg/dL (7-18); CALCIUM 7.2 mg/dL (8.5-10.1); MAGNESIUM 1.9 mg/dL (1.8-2.4)
[2023-04-01 08:03] LABS: ALBUMIN 1.3 g/dl (3.4-5.0)
[2023-04-01 08:06] LABS: CREATININE 0.5 mg/dL (0.55-1.3)
[2023-04-01 08:07] LABS: BILIRUBIN,TOTAL 0.5 mg/dL (0.2-1); TOT PROT 3.5 g/dl (6.4-8.2)
[2023-04-01] MEDS: COLLAGENASE CLOSTRIDIUM HIST. 30 GRAMS TUBE TP SCH (09:51)
[2023-04-01] MEDS: MUPIROCIN 2% TOPICAL OINTMENT FOR DECOLONIZATION NS SCH ×2 (09:51→21:21)
[2023-04-01] MEDS ORDERED: NAPH,MB-DB/K PH,MBDB POWDER PACKET GT SCH (10:00)
[2023-04-01] MEDS: NOREPINEPHRINE BITARTRATE/D5W 8 MG/250 ML BAG IVPB SCH (14:07)
[2023-04-01] MEDS: AMINO ACIDS/PROTEIN HYDROLYS 30 ML LIQUID.PKT GT SCH (18:31)
[2023-04-01] MEDS: CHLORHEXIDINE GLUCONATE 4% CLEANSER FOR DECOLONIZATION TP SCH (21:21)
[2023-04-01] MEDS ORDERED: PANTOPRAZOLE SODIUM 40 MG VIAL IVPUSH SCH (22:00)
[2023-04-02] MEDS: MEROPENEM 1 GM in DEXTROSE 5%-WATER 100 ML IVPB SCH ×3 (01:30→18:35)
[2023-04-02] MEDS: VANCOMYCIN 250 MG/5 ML ORAL SOLUTION GT SCH ×4 (05:27→18:37)
[2023-04-02 07:44] LABS: HEMATOCRIT 27.7 % (35.4-49); HEMOGLOBIN 8.8 GM/dL (11.7-16.9); MCH 27.5 pg (25.7-33.7); MCHC 31.9 g/dl (32.0-35.9); MEAN CELL VOLUME 86.3 fl (80-96); MEAN PLT VOLUME 9.9 fl (7.5-11.1); PLATELET COUNT 246 10^3/uL (134-434); RBC 3.21 M/mm3 (4.00-5.60); RDW 17.8 % (11.9-15.9); WHITE BLOOD COUNT 9.1 K/mm3 (4.0-10.0)
[2023-04-02 08:40] LABS: POTASSIUM 3.7 mmol/L (3.5-5.1)
[2023-04-02 08:47] LABS: ALBUMIN 1.2 g/dl (3.4-5.0); BLOOD UREA NITROGEN 18.8 mg/dL (7-18); CREATININE 0.4 mg/dL (0.55-1.3); MAGNESIUM 1.9 mg/dL (1.8-2.4); PHOSPHOROUS 2.1 mg/dL (2.5-4.9)
[2023-04-02 08:49] LABS: BILIRUBIN,TOTAL 0.4 mg/dL (0.2-1); TOT PROT 3.4 g/dl (6.4-8.2)
[2023-04-02 09:33] LABS: ANISOCYTOSIS 0; HELMET CELLS 0; HOWELL-JOLLY BODIES 0; MACROCYTOSIS 0; OVALOCYTE 0; ROULEAU 0; SICKELED CELLS 0; TARGET CELLS 0; TEAR DROP CELLS 0; TOXIC GRANULATION 0
[2023-04-02] MEDS: AMINO ACIDS/PROTEIN HYDROLYS 30 ML LIQUID.PKT GT SCH ×2 (10:49→16:38)
[2023-04-02] MEDS: MUPIROCIN 2% TOPICAL OINTMENT FOR DECOLONIZATION NS SCH ×2 (13:09→21:23)
[2023-04-02] MEDS: DEXTROSE 5%-0.45% SALINE 1,000 ML IV SCH (13:15)
[2023-04-02] MEDS ORDERED: POTASSIUM PHOSPHATE 15 MM in DEXTROSE 5%-WATER - 100 ML IVPB ONE (15:30)
[2023-04-02] MEDS ORDERED: PEG 3350/NA SULF BICARB CL/KCL 4000 ML SOLN.RECON GT ONE (17:00)
[2023-04-02] MEDS: COLLAGENASE CLOSTRIDIUM HIST. 30 GRAMS TUBE TP SCH (18:38)
[2023-04-02] MEDS: CHLORHEXIDINE GLUCONATE 4% CLEANSER FOR DECOLONIZATION TP SCH (21:23)
[2023-04-03] MEDS: VANCOMYCIN 250 MG/5 ML ORAL SOLUTION GT SCH ×4 (00:09→17:41)
[2023-04-03] MEDS: MEROPENEM 1 GM in DEXTROSE 5%-WATER 100 ML IVPB SCH ×3 (01:11→17:41)
[2023-04-03] MEDS: DEXTROSE 5%-0.45% SALINE 1,000 ML IV SCH ×2 (03:18→08:00)
[2023-04-03] MEDS: AMINO ACIDS/PROTEIN HYDROLYS 30 ML LIQUID.PKT GT SCH ×2 (07:51→17:37)
[2023-04-03 08:17] LABS: HEMATOCRIT 31.9 % (35.4-49); HEMOGLOBIN 10.1 GM/dL (11.7-16.9); MCH 27.3 pg (25.7-33.7); MCHC 31.8 g/dl (32.0-35.9); MEAN CELL VOLUME 85.7 fl (80-96); MEAN PLT VOLUME 9.7 fl (7.5-11.1); PLATELET COUNT 332 10^3/uL (134-434); RBC 3.72 M/mm3 (4.00-5.60); RDW 17.6 % (11.9-15.9); WHITE BLOOD COUNT 12.6 K/mm3 (4.0-10.0)
[2023-04-03 08:49] LABS: CHLORIDE 112 mmol/L (98-107); SODIUM 145 mmol/L (136-145)
[2023-04-03 08:55] LABS: PHOSPHOROUS 2.4 mg/dL (2.5-4.9)
[2023-04-03 08:57] LABS: ALBUMIN 1.3 g/dl (3.4-5.0); ANION GAP 5 MMOL/L (8-16); BLOOD UREA NITROGEN 13.1 mg/dL (7-18); CO2 29 mmol/L (21-32); CREATININE 0.4 mg/dL (0.55-1.3); GLUCOSE,RANDOM 116 mg/dL (74-106); MAGNESIUM 1.8 mg/dL (1.8-2.4)
[2023-04-03 08:59] LABS: BILIRUBIN,TOTAL 0.6 mg/dL (0.2-1); SGOT/AST 13 U/L (15-37); TOT PROT 3.8 g/dl (6.4-8.2)
[2023-04-03 09:01] LABS: ALK PHOS 112 U/L (45-117); CALCIUM 6.9 mg/dL (8.5-10.1); SGPT/ALT 9 U/L (13-61)
[2023-04-03] MEDS ORDERED: CALCIUM GLUC IN NACL, ISO-OSM 1 GM/50 ML BAG IVPB ONE (09:13)
[2023-04-03] MEDS: MUPIROCIN 2% TOPICAL OINTMENT FOR DECOLONIZATION NS SCH (09:28)
[2023-04-03] MEDS: COLLAGENASE CLOSTRIDIUM HIST. 30 GRAMS TUBE TP SCH (09:30)
[2023-04-03] MEDS ORDERED: PROPOFOL 20 ML ONE (12:25)
[2023-04-03] MEDS ORDERED: SODIUM CHLORIDE 0.9% P/F 10 ML VIAL IJ ONE (12:27)
[2023-04-03] MEDS ORDERED: POTASSIUM PHOSPHATE 30 MM in DEXTROSE 5%-WATER - 500 ML IVPB ONE (14:00)
[2023-04-03 16:14] VITALS: BMI 17.0
[2023-04-03] MEDS ORDERED: ALBUTEROL SO4 0.5 % INH SOLN 2.5 MG/0.5 ML VIAL.NEB. NEB PRN (19:27)
[2023-04-03] MEDS ORDERED: CHLORHEXIDINE GLUCONATE 4% CLEANSER FOR DECOLONIZATION TP SCH (22:00)
[2023-04-03] MEDS: ACETAMINOPHEN 1000 MG/100 ML BAG IVPB PRN (22:26)
[2023-04-04] MEDS: MEROPENEM 1 GM in DEXTROSE 5%-WATER 100 ML IVPB SCH ×3 (01:05→17:42)
[2023-04-04] MEDS: VANCOMYCIN 250 MG/5 ML ORAL SOLUTION GT SCH ×5 (02:52→23:20)
[2023-04-04] MEDS: ACETAMINOPHEN 1000 MG/100 ML BAG IVPB PRN (05:56)
[2023-04-04 08:32] LABS: BASO % 0.1 % (0-2.0); EOS % 1.8 % (0-4.5); HEMATOCRIT 26.4 % (35.4-49); HEMOGLOBIN 8.4 GM/dL (11.7-16.9); LYMPH % 3.5 % (8-40); MCH 26.9 pg (25.7-33.7); MCHC 31.9 g/dl (32.0-35.9); MEAN CELL VOLUME 84.2 fl (80-96); MEAN PLT VOLUME 8.8 fl (7.5-11.1); NEUT % 90.6 % (42.8-82.8); PLATELET COUNT 308 10^3/uL (134-434); RBC 3.13 M/mm3 (4.00-5.60); WHITE BLOOD COUNT 8.1 K/mm3 (4.0-10.0)
[2023-04-04 08:53] LABS: CHLORIDE 108 mmol/L (98-107); SODIUM 140 mmol/L (136-145)
[2023-04-04 08:55] LABS: ANION GAP 6 MMOL/L (8-16); BLOOD UREA NITROGEN 10.1 mg/dL (7-18); CO2 26 mmol/L (21-32); GLUCOSE,RANDOM 206 mg/dL (74-106); MAGNESIUM 1.7 mg/dL (1.8-2.4)
[2023-04-04 08:58] LABS: CREATININE 0.3 mg/dL (0.55-1.3)
[2023-04-04 09:01] LABS: PHOSPHOROUS 2.4 mg/dL (2.5-4.9)
[2023-04-04 09:02] LABS: CALCIUM 6.7 mg/dL (8.5-10.1)
[2023-04-04] MEDS: AMINO ACIDS/PROTEIN HYDROLYS 30 ML LIQUID.PKT GT SCH ×2 (09:29→16:44)
[2023-04-04] MEDS: DEXTROSE 5%-0.45% SALINE 1,000 ML IV SCH (12:21)
[2023-04-04] MEDS: COLLAGENASE CLOSTRIDIUM HIST. 30 GRAMS TUBE TP SCH (13:26)
[2023-04-04] MEDS: MAGNESIUM 1GM/D5W - 1 GM/100 ML IVPB IVPB SCH ×2 (16:44→18:36)
[2023-04-04] MEDS ORDERED: APIXABAN 5 MG TABLET PO SCH (16:45)
[2023-04-05] MEDS ORDERED: ACETAMINOPHEN 650 MG/20.3 ML ORAL SOLUTION (CUPS) GT ONE (00:52)
[2023-04-05] MEDS: MEROPENEM 1 GM in DEXTROSE 5%-WATER 100 ML IVPB SCH ×3 (02:06→17:51)
[2023-04-05] MEDS: VANCOMYCIN 250 MG/5 ML ORAL SOLUTION GT SCH ×4 (06:00→23:30)
[2023-04-05] MEDS: DEXTROSE 5%-0.45% SALINE 1,000 ML IV SCH ×2 (06:00→12:10)
[2023-04-05] MEDS: AMINO ACIDS/PROTEIN HYDROLYS 30 ML LIQUID.PKT GT SCH ×2 (09:54→17:09)
[2023-04-05] MEDS: APIXABAN 5 MG TABLET PO SCH ×2 (09:54→22:23)
[2023-04-05] MEDS: COLLAGENASE CLOSTRIDIUM HIST. 30 GRAMS TUBE TP SCH (11:50)
[2023-04-05 19:51] LABS: HEMATOCRIT 32.7 % (35.4-49); HEMOGLOBIN 10.3 GM/dL (11.7-16.9); MCH 26.7 pg (25.7-33.7); MCHC 31.4 g/dl (32.0-35.9); MEAN CELL VOLUME 85.1 fl (80-96); MEAN PLT VOLUME 9.2 fl (7.5-11.1); PLATELET COUNT 387 10^3/uL (134-434); RBC 3.85 M/mm3 (4.00-5.60); WHITE BLOOD COUNT 18.3 K/mm3 (4.0-10.0)
[2023-04-05 19:55] LABS: POTASSIUM 4.4 mmol/L (3.5-5.1)
[2023-04-05 20:00] LABS: ALBUMIN 1.3 g/dl (3.4-5.0); BLOOD UREA NITROGEN 15.6 mg/dL (7-18); MAGNESIUM 1.8 mg/dL (1.8-2.4)
[2023-04-05 20:02] LABS: CREATININE 0.3 mg/dL (0.55-1.3)
[2023-04-05 20:03] LABS: PHOSPHOROUS 2.5 mg/dL (2.5-4.9)
[2023-04-05 20:04] LABS: BILIRUBIN,TOTAL 0.2 mg/dL (0.2-1); TOT PROT 3.8 g/dl (6.4-8.2)
[2023-04-05 20:05] LABS: N-TERMINAL BNP 407.6 pg/ml (5-125)
[2023-04-05] MEDS: ACETAMINOPHEN 325 MG TABLET (FP) PO PRN (20:34)
[2023-04-05 21:43] LABS: ANISOCYTOSIS 2+; MACROCYTOSIS 0; OVALOCYTE 1+; TEAR DROP CELLS 1+
[2023-04-05] MEDS ORDERED: IBUPROFEN 100 MG/5 ML UNIT DOSE CUPS PO ONE (22:22)
[2023-04-06] MEDS: MEROPENEM 1 GM in DEXTROSE 5%-WATER 100 ML IVPB SCH ×3 (01:45→18:08)
[2023-04-06] MEDS: VANCOMYCIN 250 MG/5 ML ORAL SOLUTION GT SCH ×3 (06:52→18:09)
[2023-04-06] MEDS: AMINO ACIDS/PROTEIN HYDROLYS 30 ML LIQUID.PKT GT SCH ×2 (08:53→18:08)
[2023-04-06] MEDS: COLLAGENASE CLOSTRIDIUM HIST. 30 GRAMS TUBE TP SCH (10:07)
[2023-04-06] MEDS: APIXABAN 5 MG TABLET PO SCH ×2 (11:23→22:21)
[2023-04-06] MEDS ORDERED: METOPROLOL TARTRATE 5 MG/5 ML VIAL IVPUSH PRN (12:35)
[2023-04-06] MEDS ORDERED: METOPROLOL TARTRATE 5 MG/5 ML VIAL IVPUSH ONE ×2 (12:40→12:41)
[2023-04-06] MEDS ORDERED: FUROSEMIDE 40 MG/4 ML INJECTABLE VIAL IVPUSH SCH (14:30)
[2023-04-06] MEDS ORDERED: METOPROLOL TARTRATE 25 MG TABLET (FP) PO ONE (15:30)
[2023-04-06] MEDS: ACETAMINOPHEN 325 MG TABLET (FP) PO PRN ×2 (18:08→23:49)
[2023-04-06] MEDS ORDERED: METOPROLOL TARTRATE 25 MG TABLET (FP) PO SCH (22:00)
[2023-04-07] MEDS: VANCOMYCIN 250 MG/5 ML ORAL SOLUTION GT SCH ×4 (00:24→17:18)
[2023-04-07] MEDS: MEROPENEM 1 GM in DEXTROSE 5%-WATER 100 ML IVPB SCH ×3 (01:00→22:30)
[2023-04-07] MEDS ORDERED: METOPROLOL TARTRATE 50 MG TABLET (FP) PO SCH (07:31)
[2023-04-07] MEDS ORDERED: METOPROLOL TARTRATE 5 MG/5 ML VIAL IVPB PRN (07:38)
[2023-04-07] MEDS ORDERED: METOPROLOL TARTRATE 5 MG/5 ML VIAL IVPB ONE (07:45)
[2023-04-07] MEDS ORDERED: FUROSEMIDE 40 MG/4 ML INJECTABLE VIAL IVPUSH ONE (08:30)
[2023-04-07] MEDS: AMINO ACIDS/PROTEIN HYDROLYS 30 ML LIQUID.PKT GT SCH ×2 (11:17→17:18)
[2023-04-07] MEDS: COLLAGENASE CLOSTRIDIUM HIST. 30 GRAMS TUBE TP SCH (11:21)
[2023-04-07 12:59] LABS: POTASSIUM 5.9 mmol/L (3.5-5.1)
[2023-04-07 13:03] LABS: MAGNESIUM 2.1 mg/dL (1.8-2.4)
[2023-04-07 13:04] LABS: ALBUMIN 1.2 g/dl (3.4-5.0)
[2023-04-07 13:06] LABS: PHOSPHOROUS 4.7 mg/dL (2.5-4.9)
[2023-04-07 13:07] LABS: CREATININE 0.6 mg/dL (0.55-1.3)
[2023-04-07 13:08] LABS: BILIRUBIN,TOTAL 0.1 mg/dL (0.2-1); TOT PROT 3.5 g/dl (6.4-8.2)
[2023-04-07 13:25] LABS: BLOOD UREA NITROGEN 65.6 mg/dL (7-18); CALCIUM 9.6 mg/dL (8.5-10.1)
[2023-04-07] MEDS ORDERED: SODIUM CHLORIDE 250 ML IV STA ×2 (13:59→14:48)
[2023-04-07] MEDS: SODIUM ZIRCONIUM CYCLOSILICATE (LOKELMA) 5 GM PACKET PO SCH (14:21)
[2023-04-07] MEDS: METOPROLOL TARTRATE 50 MG TABLET (FP) PO SCH (23:41)
[2023-04-07] MEDS: ACETAMINOPHEN 325 MG TABLET (FP) PO PRN (23:42)
[2023-04-08] MEDS: VANCOMYCIN 250 MG/5 ML ORAL SOLUTION GT SCH ×4 (00:34→18:26)
[2023-04-08] MEDS: MEROPENEM 1 GM in DEXTROSE 5%-WATER 100 ML IVPB SCH ×3 (03:23→18:05)
[2023-04-08] MEDS: ACETAMINOPHEN 325 MG TABLET (FP) PO PRN (03:30)
[2023-04-08] MEDS ORDERED: INSULIN SLIDING SCALE (NOVOLOG) 1 VIAL SQ SCH (08:00)
[2023-04-08] MEDS ORDERED: INSULIN (LEVEMIR) 100 UNITS/ML UNITS SQ SCH (08:00)
[2023-04-08] MEDS: AMINO ACIDS/PROTEIN HYDROLYS 30 ML LIQUID.PKT GT SCH ×2 (08:38→18:26)
[2023-04-08] MEDS: METOPROLOL TARTRATE 50 MG TABLET (FP) PO SCH (10:06)
[2023-04-08] MEDS: COLLAGENASE CLOSTRIDIUM HIST. 30 GRAMS TUBE TP SCH (10:06)
[2023-04-08] MEDS: INSULIN SLIDING SCALE (NOVOLOG) 1 VIAL SQ SCH ×3 (11:17→22:10)
[2023-04-08 12:13] LABS: HEMATOCRIT 12.1 % (35.4-49); MCH 27.5 pg (25.7-33.7); MCHC 32.2 g/dl (32.0-35.9); MEAN CELL VOLUME 85.3 fl (80-96); MEAN PLT VOLUME 8.9 fl (7.5-11.1); PLATELET COUNT 296 10^3/uL (134-434); RBC 1.42 M/mm3 (4.00-5.60); RDW 17.9 % (11.9-15.9); WHITE BLOOD COUNT 7.9 K/mm3 (4.0-10.0)
[2023-04-08 12:33] LABS: POTASSIUM 5.2 mmol/L (3.5-5.1)
[2023-04-08 12:43] LABS: HEMOGLOBIN 3.9 GM/dL (11.7-16.9)
[2023-04-08 12:49] LABS: ALBUMIN 1.2 g/dl (3.4-5.0); BLOOD UREA NITROGEN 61.6 mg/dL (7-18); CALCIUM 9.5 mg/dL (8.5-10.1); MAGNESIUM 2.1 mg/dL (1.8-2.4)
[2023-04-08 12:52] LABS: PHOSPHOROUS 3.6 mg/dL (2.5-4.9)
[2023-04-08 12:53] LABS: CREATININE 0.6 mg/dL (0.55-1.3)
[2023-04-08 12:54] LABS: TOT PROT 3.4 g/dl (6.4-8.2)
[2023-04-08 12:55] LABS: BILIRUBIN,TOTAL 0.3 mg/dL (0.2-1)
[2023-04-08] MEDS: SODIUM ZIRCONIUM CYCLOSILICATE (LOKELMA) 5 GM PACKET PO SCH (13:17)
[2023-04-08 13:49] LABS: MCH 28.3 pg (25.7-33.7); MCHC 32.6 g/dl (32.0-35.9); MEAN CELL VOLUME 86.8 fl (80-96); MEAN PLT VOLUME 9.3 fl (7.5-11.1); PLATELET COUNT 300 10^3/uL (134-434); RBC 1.38 M/mm3 (4.00-5.60); RDW 18.2 % (11.9-15.9)
[2023-04-08 14:16] LABS: HEMOGLOBIN 3.9 GM/dL (11.7-16.9)
[2023-04-08] MEDS ORDERED: LACTATED RINGERS SOLUTION 1,000 ML/1,000 ML INFUS.BAG IV STA (14:29)
[2023-04-08] MEDS ORDERED: PANTOPRAZOLE SODIUM 40 MG VIAL IVPUSH ONE (16:25)
[2023-04-08] MEDS ORDERED: SODIUM CHLORIDE 1,000 ML IV STA (17:02)
[2023-04-08] MEDS: PANTOPRAZOLE SODIUM 80 MG in SODIUM CHLORIDE 100 ML IVPB SCH ×2 (18:25→22:11)
[2023-04-08] MEDS: CHLORHEXIDINE GLUCONATE 4% CLEANSER FOR DECOLONIZATION TP SCH (22:02)
[2023-04-08 23:35] LABS: INR 1.23 (0.83-1.09); PROTHROMBIN TIME (PATIENT) 14.2 SEC (9.7-13.0)
[2023-04-08 23:39] LABS: ACTIVATED PTT 29.7 SECONDS (25.2-36.5)
[2023-04-08 23:52] LABS: HEMATOCRIT 22.6 % (35.4-49); HEMOGLOBIN 7.6 GM/dL (11.7-16.9); MCH 27.9 pg (25.7-33.7); MCHC 33.5 g/dl (32.0-35.9); MEAN CELL VOLUME 83.3 fl (80-96); MEAN PLT VOLUME 8.1 fl (7.5-11.1); PLATELET COUNT 315 10^3/uL (134-434); RBC 2.72 M/mm3 (4.00-5.60); WHITE BLOOD COUNT 11.2 K/mm3 (4.0-10.0)
[2023-04-09] MEDS: NOREPINEPHRINE BITARTRATE 4,000 MCG in DEXTROSE 5%-WATER - 496 ML IV SCH (01:00)
[2023-04-09] MEDS: MEROPENEM 1 GM in DEXTROSE 5%-WATER 100 ML IVPB SCH ×3 (02:32→16:59)
[2023-04-09] MEDS: VANCOMYCIN 250 MG/5 ML ORAL SOLUTION GT SCH ×5 (02:49→23:56)
[2023-04-09] MEDS: INSULIN SLIDING SCALE (NOVOLOG) 1 VIAL SQ SCH ×4 (06:07→22:06)
[2023-04-09] MEDS: MUPIROCIN 2% TOPICAL OINTMENT FOR DECOLONIZATION NS SCH ×3 (06:09→22:05)
[2023-04-09 07:41] LABS: HEMATOCRIT 24.2 % (35.4-49); HEMOGLOBIN 8.1 GM/dL (11.7-16.9); MCH 28.1 pg (25.7-33.7); MCHC 33.4 g/dl (32.0-35.9); MEAN CELL VOLUME 84.3 fl (80-96); MEAN PLT VOLUME 9.3 fl (7.5-11.1); PLATELET COUNT 374 10^3/uL (134-434); RBC 2.87 M/mm3 (4.00-5.60); RDW 15.9 % (11.9-15.9); WHITE BLOOD COUNT 12.1 K/mm3 (4.0-10.0)
[2023-04-09 07:58] LABS: POTASSIUM 4.5 mmol/L (3.5-5.1)
[2023-04-09 08:02] LABS: CALCIUM 8.9 mg/dL (8.5-10.1)
[2023-04-09 08:03] LABS: ALBUMIN 1.3 g/dl (3.4-5.0); BLOOD UREA NITROGEN 39.7 mg/dL (7-18); MAGNESIUM 1.8 mg/dL (1.8-2.4)
[2023-04-09 08:06] LABS: CREATININE 0.4 mg/dL (0.55-1.3); PHOSPHOROUS 2.4 mg/dL (2.5-4.9)
[2023-04-09 08:07] LABS: TOT PROT 3.5 g/dl (6.4-8.2)
[2023-04-09] MEDS ORDERED: ACETAMINOPHEN 325 MG TABLET (FP) PO PRN (08:53)
[2023-04-09] MEDS ORDERED: ALBUTEROL SO4 0.5 % INH SOLN 2.5 MG/0.5 ML VIAL.NEB. NEB PRN (08:53)
[2023-04-09] MEDS: AMINO ACIDS/PROTEIN HYDROLYS 30 ML LIQUID.PKT GT SCH ×2 (09:00→16:45)
[2023-04-09] MEDS ORDERED: APIXABAN 5 MG TABLET PO SCH (10:00)
[2023-04-09] MEDS: METOPROLOL TARTRATE 50 MG TABLET (FP) PO SCH ×2 (10:36→11:07)
[2023-04-09] MEDS: PANTOPRAZOLE SODIUM 80 MG in SODIUM CHLORIDE 100 ML IVPB SCH ×2 (10:38→13:02)
[2023-04-09] MEDS: COLLAGENASE CLOSTRIDIUM HIST. 30 GRAMS TUBE TP SCH (11:00)
[2023-04-09] MEDS: SODIUM CHLORIDE 1,000 ML IV SCH (11:04)
[2023-04-09] MEDS ORDERED: ACETAMINOPHEN 1000 MG/100 ML BAG IVPB ONE (11:11)
[2023-04-09] MEDS ORDERED: LACTATED RINGERS SOLUTION 1,000 ML/1,000 ML INFUS.BAG IV STA (13:08)
[2023-04-09 16:11] LABS: HEMATOCRIT 20.5 % (35.4-49); MCH 28.4 pg (25.7-33.7); MCHC 33.2 g/dl (32.0-35.9); MEAN CELL VOLUME 85.5 fl (80-96); MEAN PLT VOLUME 9.1 fl (7.5-11.1); PLATELET COUNT 336 10^3/uL (134-434); RDW 15.8 % (11.9-15.9); WHITE BLOOD COUNT 10.6 K/mm3 (4.0-10.0)
[2023-04-09 16:20] LABS: HEMOGLOBIN 6.8 GM/dL (11.7-16.9)
[2023-04-09] MEDS: CHLORHEXIDINE GLUCONATE 4% CLEANSER FOR DECOLONIZATION TP SCH (22:04)
[2023-04-09 23:39] LABS: HEMATOCRIT 25.9 % (35.4-49); HEMOGLOBIN 8.6 GM/dL (11.7-16.9); MCH 28.3 pg (25.7-33.7); MCHC 33.2 g/dl (32.0-35.9); MEAN CELL VOLUME 85.2 fl (80-96); MEAN PLT VOLUME 8.6 fl (7.5-11.1); PLATELET COUNT 317 10^3/uL (134-434); RBC 3.04 M/mm3 (4.00-5.60); RDW 15.6 % (11.9-15.9); WHITE BLOOD COUNT 10.7 K/mm3 (4.0-10.0)
[2023-04-10] MEDS: PANTOPRAZOLE SODIUM 80 MG in SODIUM CHLORIDE 100 ML IVPB SCH ×3 (01:33→18:35)
[2023-04-10] MEDS: SODIUM CHLORIDE 1,000 ML IV SCH ×2 (01:33→09:22)
[2023-04-10] MEDS: NOREPINEPHRINE BITARTRATE 4,000 MCG in DEXTROSE 5%-WATER - 496 ML IV SCH (01:33)
[2023-04-10] MEDS: MEROPENEM 1 GM in DEXTROSE 5%-WATER 100 ML IVPB SCH ×3 (01:45→17:48)
[2023-04-10] MEDS: VANCOMYCIN 250 MG/5 ML ORAL SOLUTION GT SCH ×3 (05:13→17:48)
[2023-04-10] MEDS: INSULIN SLIDING SCALE (NOVOLOG) 1 VIAL SQ SCH ×4 (06:08→22:19)
[2023-04-10] MEDS: INSULIN (LEVEMIR) 100 UNITS/ML UNITS SQ SCH (06:09)
[2023-04-10 07:24] LABS: BASO % 0.2 % (0-2.0); EOS % 1.8 % (0-4.5); HEMATOCRIT 24.7 % (35.4-49); HEMOGLOBIN 8.4 GM/dL (11.7-16.9); LYMPH % 2.4 % (8-40); MCHC 33.9 g/dl (32.0-35.9); MEAN CELL VOLUME 85.4 fl (80-96); MEAN PLT VOLUME 9.3 fl (7.5-11.1); NEUT % 89.6 % (42.8-82.8); PLATELET COUNT 309 10^3/uL (134-434); RBC 2.89 M/mm3 (4.00-5.60); RDW 15.7 % (11.9-15.9); WHITE BLOOD COUNT 9.1 K/mm3 (4.0-10.0)
[2023-04-10 07:42] LABS: POTASSIUM 4.1 mmol/L (3.5-5.1)
[2023-04-10 07:44] LABS: ALBUMIN 1.1 g/dl (3.4-5.0)
[2023-04-10 07:45] LABS: BLOOD UREA NITROGEN 24.8 mg/dL (7-18); MAGNESIUM 1.9 mg/dL (1.8-2.4)
[2023-04-10 07:47] LABS: CREATININE 0.4 mg/dL (0.55-1.3)
[2023-04-10 07:49] LABS: BILIRUBIN,TOTAL 0.8 mg/dL (0.2-1); TOT PROT 3.2 g/dl (6.4-8.2)
[2023-04-10] MEDS ORDERED: POTASSIUM PHOSPHATE 15 MM in SODIUM CHLORIDE 100 ML IVPB ONE (08:24)
[2023-04-10] MEDS: MUPIROCIN 2% TOPICAL OINTMENT FOR DECOLONIZATION NS SCH ×2 (09:22→22:20)
[2023-04-10] MEDS: COLLAGENASE CLOSTRIDIUM HIST. 30 GRAMS TUBE TP SCH (09:22)
[2023-04-10] MEDS: AMINO ACIDS/PROTEIN HYDROLYS 30 ML LIQUID.PKT GT SCH ×2 (09:22→17:48)
[2023-04-10] MEDS: LYTES/YERBA SANTA 60 ML SPRAY MM SCH ×3 (11:40→22:20)
[2023-04-10] MEDS ORDERED: FENTANYL CITRATE/PF 50 MCG/ML VIAL ONE (12:34)
[2023-04-10] MEDS ORDERED: MIDAZOLAM HCL 2 MG/2 ML SINGLE DOSE VIAL ONE (12:34)
[2023-04-10] MEDS ORDERED: ETOMIDATE 20 MG/10 ML VIAL IVPUSH ONE (12:35)
[2023-04-10] MEDS ORDERED: DEXTROSE 50%-WATER 25 GM/50 ML DISP.SYRIN ONE (16:37)
[2023-04-10] MEDS ORDERED: DEXTROSE 50%-WATER 25 GM/50 ML DISP.SYRIN IVPUSH ONE (16:42)
[2023-04-10] MEDS: NAPH,MB-DB/K PH,MBDB POWDER PACKET PO SCH ×2 (17:48→22:18)
[2023-04-10] MEDS: ESCITALOPRAM OXALATE 5 MG/5 ML NGT SCH (17:51)
[2023-04-10] MEDS: CHLORHEXIDINE GLUCONATE 4% CLEANSER FOR DECOLONIZATION TP SCH (22:18)
[2023-04-10] MEDS ORDERED: INSULIN (LEVEMIR) 100 UNITS/ML UNITS SQ ONE (22:25)
[2023-04-10] MEDS ORDERED: DEXTROSE 50%-WATER 25 GM/50 ML DISP.SYRIN IVPUSH STA (22:31)
[2023-04-11] MEDS: NOREPINEPHRINE BITARTRATE 4,000 MCG in DEXTROSE 5%-WATER - 496 ML IV SCH (00:23)
[2023-04-11] MEDS: VANCOMYCIN 250 MG/5 ML ORAL SOLUTION GT SCH ×4 (00:23→18:34)
[2023-04-11] MEDS: MEROPENEM 1 GM in DEXTROSE 5%-WATER 100 ML IVPB SCH ×3 (02:40→17:45)
[2023-04-11] MEDS: NAPH,MB-DB/K PH,MBDB POWDER PACKET PO SCH (05:09)
[2023-04-11] MEDS: LYTES/YERBA SANTA 60 ML SPRAY MM SCH ×3 (05:38→17:00)
[2023-04-11] MEDS: PANTOPRAZOLE SODIUM 80 MG in SODIUM CHLORIDE 100 ML IVPB SCH (05:39)
[2023-04-11] MEDS: INSULIN SLIDING SCALE (NOVOLOG) 1 VIAL SQ SCH ×4 (06:40→21:59)
[2023-04-11] MEDS: INSULIN (LEVEMIR) 100 UNITS/ML UNITS SQ SCH (06:40)
[2023-04-11 07:21] LABS: HEMATOCRIT 23.5 % (35.4-49); HEMOGLOBIN 7.7 GM/dL (11.7-16.9); MCH 28.7 pg (25.7-33.7); MCHC 32.8 g/dl (32.0-35.9); MEAN CELL VOLUME 87.7 fl (80-96); MEAN PLT VOLUME 9.1 fl (7.5-11.1); PLATELET COUNT 243 10^3/uL (134-434); RBC 2.69 M/mm3 (4.00-5.60); RDW 15.7 % (11.9-15.9); WHITE BLOOD COUNT 8.7 K/mm3 (4.0-10.0)
[2023-04-11 07:44] LABS: CALCIUM 7.7 mg/dL (8.5-10.1)
[2023-04-11 07:45] LABS: BLOOD UREA NITROGEN 17.6 mg/dL (7-18); MAGNESIUM 1.7 mg/dL (1.8-2.4)
[2023-04-11 07:48] LABS: CREATININE 0.3 mg/dL (0.55-1.3); PHOSPHOROUS 2.2 mg/dL (2.5-4.9)
[2023-04-11 07:49] LABS: BILIRUBIN,TOTAL 0.4 mg/dL (0.2-1); TOT PROT 2.9 g/dl (6.4-8.2)
[2023-04-11 09:46] LABS: ANISOCYTOSIS 0; MACROCYTOSIS 0; OVALOCYTE 1+
[2023-04-11] MEDS: PANTOPRAZOLE SODIUM 40 MG VIAL IVPUSH SCH ×2 (10:15→21:51)
[2023-04-11] MEDS: AMINO ACIDS/PROTEIN HYDROLYS 30 ML LIQUID.PKT GT SCH ×2 (10:16→17:45)
[2023-04-11] MEDS: ESCITALOPRAM OXALATE 5 MG/5 ML NGT SCH (10:17)
[2023-04-11] MEDS: MUPIROCIN 2% TOPICAL OINTMENT FOR DECOLONIZATION NS SCH ×2 (10:17→22:00)
[2023-04-11] MEDS: NAPH,MB-DB/K PH,MBDB POWDER PACKET PEG SCH ×2 (10:18→21:51)
[2023-04-11] MEDS: COLLAGENASE CLOSTRIDIUM HIST. 30 GRAMS TUBE TP SCH (10:18)
[2023-04-11] MEDS: CHLORHEXIDINE GLUCONATE 4% CLEANSER FOR DECOLONIZATION TP SCH (21:51)
[2023-04-12] MEDS: VANCOMYCIN 250 MG/5 ML ORAL SOLUTION GT SCH ×5 (00:23→23:43)
[2023-04-12] MEDS: LYTES/YERBA SANTA 60 ML SPRAY MM SCH ×6 (00:24→23:43)
[2023-04-12] MEDS: MEROPENEM 1 GM in DEXTROSE 5%-WATER 100 ML IVPB SCH ×3 (02:30→17:06)
[2023-04-12] MEDS ORDERED: INSULIN (LEVEMIR) 100 UNITS/ML UNITS SQ ONE (05:32)
[2023-04-12] MEDS: INSULIN (LEVEMIR) 100 UNITS/ML UNITS SQ SCH (06:26)
[2023-04-12] MEDS: INSULIN SLIDING SCALE (NOVOLOG) 1 VIAL SQ SCH ×4 (06:28→21:11)
[2023-04-12 07:27] LABS: HEMATOCRIT 24.1 % (35.4-49); HEMOGLOBIN 7.9 GM/dL (11.7-16.9); MCH 29.2 pg (25.7-33.7); MCHC 32.8 g/dl (32.0-35.9); MEAN CELL VOLUME 89.2 fl (80-96); MEAN PLT VOLUME 8.8 fl (7.5-11.1); PLATELET COUNT 258 10^3/uL (134-434); RDW 15.7 % (11.9-15.9); WHITE BLOOD COUNT 9.3 K/mm3 (4.0-10.0)
[2023-04-12 07:30] LABS: MAGNESIUM 1.9 mg/dL (1.8-2.4)
[2023-04-12] MEDS: AMINO ACIDS/PROTEIN HYDROLYS 30 ML LIQUID.PKT GT SCH ×2 (09:43→17:06)
[2023-04-12] MEDS: PANTOPRAZOLE SODIUM 40 MG VIAL IVPUSH SCH ×2 (09:43→21:11)
[2023-04-12] MEDS: NAPH,MB-DB/K PH,MBDB POWDER PACKET PEG SCH ×2 (09:47→21:11)
[2023-04-12] MEDS: MUPIROCIN 2% TOPICAL OINTMENT FOR DECOLONIZATION NS SCH ×2 (09:48→21:11)
[2023-04-12] MEDS: ESCITALOPRAM OXALATE 5 MG/5 ML NGT SCH (13:37)
[2023-04-12] MEDS ORDERED: HYDROmorphone HCl 2 MG/ML VIAL IVPUSH STA (14:59)
[2023-04-12] MEDS: COLLAGENASE CLOSTRIDIUM HIST. 30 GRAMS TUBE TP SCH (19:18)
[2023-04-12] MEDS: CHLORHEXIDINE GLUCONATE 4% CLEANSER FOR DECOLONIZATION TP SCH (21:11)
[2023-04-13] MEDS: MEROPENEM 1 GM in DEXTROSE 5%-WATER 100 ML IVPB SCH ×2 (01:04→09:08)
[2023-04-13] MEDS: LYTES/YERBA SANTA 60 ML SPRAY MM SCH ×4 (05:29→22:02)
[2023-04-13] MEDS: VANCOMYCIN 250 MG/5 ML ORAL SOLUTION GT SCH ×4 (05:56→23:04)
[2023-04-13] MEDS: INSULIN SLIDING SCALE (NOVOLOG) 1 VIAL SQ SCH ×4 (06:03→21:20)
[2023-04-13] MEDS: INSULIN (LEVEMIR) 100 UNITS/ML UNITS SQ SCH ×2 (06:05→06:06)
[2023-04-13 07:05] LABS: HEMATOCRIT 25.5 % (35.4-49); MCH 28.1 pg (25.7-33.7); MCHC 31.5 g/dl (32.0-35.9); MEAN CELL VOLUME 89.1 fl (80-96); MEAN PLT VOLUME 8.7 fl (7.5-11.1); PLATELET COUNT 301 10^3/uL (134-434); RBC 2.86 M/mm3 (4.00-5.60); RDW 15.8 % (11.9-15.9); WHITE BLOOD COUNT 13.3 K/mm3 (4.0-10.0)
[2023-04-13 07:21] LABS: POTASSIUM 4.8 mmol/L (3.5-5.1)
[2023-04-13 07:24] LABS: CALCIUM 7.7 mg/dL (8.5-10.1)
[2023-04-13 07:25] LABS: BLOOD UREA NITROGEN 16.7 mg/dL (7-18); MAGNESIUM 2.1 mg/dL (1.8-2.4)
[2023-04-13 07:27] LABS: CREATININE 0.3 mg/dL (0.55-1.3); PHOSPHOROUS 2.3 mg/dL (2.5-4.9)
[2023-04-13] MEDS: AMINO ACIDS/PROTEIN HYDROLYS 30 ML LIQUID.PKT GT SCH ×2 (08:16→17:40)
[2023-04-13] MEDS: PANTOPRAZOLE SODIUM 40 MG VIAL IVPUSH SCH ×2 (09:21→21:23)
[2023-04-13] MEDS: COLLAGENASE CLOSTRIDIUM HIST. 30 GRAMS TUBE TP SCH (09:21)
[2023-04-13] MEDS: ESCITALOPRAM OXALATE 5 MG/5 ML NGT SCH (09:25)
[2023-04-13] MEDS: MUPIROCIN 2% TOPICAL OINTMENT FOR DECOLONIZATION NS SCH (10:14)
[2023-04-13] MEDS ORDERED: MIDODRINE HCL 5 MG TABLET PO SCH ×2 (10:24→18:00)
[2023-04-13] MEDS ORDERED: LACTATED RINGERS SOLUTION 1000 ML INFUS.BAG IV ONE (10:25)
[2023-04-13] MEDS: MIDODRINE HCL 5 MG TABLET PO SCH ×2 (10:57→17:36)
[2023-04-13] MEDS ORDERED: DAPTOMYCIN 300 MG in SODIUM CHLORIDE 50 ML IVPB SCH (15:15)
[2023-04-13] MEDS: NAPH,MB-DB/K PH,MBDB POWDER PACKET PO SCH ×2 (16:02→21:20)
[2023-04-13] MEDS: PIPERACILLIN/TAZOB 3.375 GM 3.375 GM in DEXTROSE 5%-WATER - 50 ML IVPB SCH (17:34)
[2023-04-13] MEDS ORDERED: PIPERACILLIN/TAZOB 3.375 GM 3.375 GM in DEXTROSE 5%-WATER - 50 ML IVPB SCH (18:00)
[2023-04-13] MEDS: CHLORHEXIDINE GLUCONATE 4% CLEANSER FOR DECOLONIZATION TP SCH (21:20)
[2023-04-14] MEDS: PIPERACILLIN/TAZOB 3.375 GM 3.375 GM in DEXTROSE 5%-WATER - 50 ML IVPB SCH ×3 (01:31→18:48)
[2023-04-14] MEDS: MIDODRINE HCL 5 MG TABLET PO SCH ×3 (01:31→18:47)
[2023-04-14] MEDS: NAPH,MB-DB/K PH,MBDB POWDER PACKET PO SCH (05:49)
[2023-04-14] MEDS: VANCOMYCIN 250 MG/5 ML ORAL SOLUTION GT SCH ×4 (05:49→23:19)
[2023-04-14] MEDS: LYTES/YERBA SANTA 60 ML SPRAY MM SCH ×4 (05:49→22:13)
[2023-04-14] MEDS: INSULIN (LEVEMIR) 100 UNITS/ML UNITS SQ SCH (06:01)
[2023-04-14] MEDS: INSULIN SLIDING SCALE (NOVOLOG) 1 VIAL SQ SCH ×4 (06:02→21:20)
[2023-04-14] MEDS: AMINO ACIDS/PROTEIN HYDROLYS 30 ML LIQUID.PKT GT SCH ×2 (09:16→18:47)
[2023-04-14] MEDS: ESCITALOPRAM OXALATE 5 MG/5 ML NGT SCH (09:28)
[2023-04-14] MEDS: PANTOPRAZOLE SODIUM 40 MG VIAL IVPUSH SCH ×2 (09:29→21:20)
[2023-04-14] MEDS: ACETAMINOPHEN 1000 MG/100 ML BAG IVPB PRN (10:43)
[2023-04-14] MEDS ORDERED: dilTIAZem HCL 125 MG/25 ML - 25 ML VIAL ONE (12:50)
[2023-04-14] MEDS: CHLORHEXIDINE GLUCONATE 4% CLEANSER FOR DECOLONIZATION TP SCH (21:20)
[2023-04-15] MEDS: PIPERACILLIN/TAZOB 3.375 GM 3.375 GM in DEXTROSE 5%-WATER - 50 ML IVPB SCH ×3 (02:40→17:26)
[2023-04-15] MEDS: MIDODRINE HCL 5 MG TABLET PO SCH ×3 (02:40→17:30)
[2023-04-15] MEDS: LYTES/YERBA SANTA 60 ML SPRAY MM SCH ×3 (05:20→17:07)
[2023-04-15] MEDS: INSULIN SLIDING SCALE (NOVOLOG) 1 VIAL SQ SCH ×4 (06:22→21:01)
[2023-04-15] MEDS: INSULIN (LEVEMIR) 100 UNITS/ML UNITS SQ SCH (06:22)
[2023-04-15] MEDS: VANCOMYCIN 250 MG/5 ML ORAL SOLUTION GT SCH ×3 (06:22→17:25)
[2023-04-15] MEDS: ACETAMINOPHEN 1000 MG/100 ML BAG IVPB PRN (08:15)
[2023-04-15] MEDS ORDERED: RAPID SEQUENCE INTUBATION KIT NR ONE (09:42)
[2023-04-15] MEDS ORDERED: MULTIVIT INJ. ADULT COMBO WITH VIT K 1 COMBO 10 ML VIAL IV SCH (10:00)
[2023-04-15] MEDS: AMINO ACIDS/PROTEIN HYDROLYS 30 ML LIQUID.PKT GT SCH ×2 (10:24→17:24)
[2023-04-15] MEDS: PANTOPRAZOLE SODIUM 40 MG VIAL IVPUSH SCH ×2 (10:24→21:01)
[2023-04-15] MEDS: ESCITALOPRAM OXALATE 5 MG/5 ML NGT SCH (10:26)
[2023-04-15] MEDS: CHLORHEXIDINE GLUCONATE 4% CLEANSER FOR DECOLONIZATION TP SCH (21:01)
[2023-04-16] MEDS: VANCOMYCIN 250 MG/5 ML ORAL SOLUTION GT SCH ×5 (00:25→23:17)
[2023-04-16] MEDS: LYTES/YERBA SANTA 60 ML SPRAY MM SCH ×5 (00:26→22:16)
[2023-04-16] MEDS: MIDODRINE HCL 5 MG TABLET PO SCH ×3 (01:40→17:39)
[2023-04-16] MEDS: PIPERACILLIN/TAZOB 3.375 GM 3.375 GM in DEXTROSE 5%-WATER - 50 ML IVPB SCH ×3 (01:40→17:38)
[2023-04-16] MEDS: INSULIN (LEVEMIR) 100 UNITS/ML UNITS SQ SCH (06:19)
[2023-04-16] MEDS: INSULIN SLIDING SCALE (NOVOLOG) 1 VIAL SQ SCH ×4 (06:19→22:15)
[2023-04-16 07:14] LABS: BASO % 0.2 % (0-2.0); EOS % 4.1 % (0-4.5); HEMATOCRIT 25.9 % (35.4-49); HEMOGLOBIN 8.3 GM/dL (11.7-16.9); LYMPH % 2.6 % (8-40); MCH 28.4 pg (25.7-33.7); MCHC 31.9 g/dl (32.0-35.9); MEAN CELL VOLUME 88.9 fl (80-96); MONO % 6.7 % (3.8-10.2); NEUT % 86.4 % (42.8-82.8); PLATELET COUNT 377 10^3/uL (134-434); RBC 2.91 M/mm3 (4.00-5.60); RDW 15.9 % (11.9-15.9); WHITE BLOOD COUNT 8.9 K/mm3 (4.0-10.0)
[2023-04-16 07:53] LABS: POTASSIUM 4.7 mmol/L (3.5-5.1)
[2023-04-16 08:01] LABS: CALCIUM 7.9 mg/dL (8.5-10.1)
[2023-04-16 08:02] LABS: ALBUMIN 1.1 g/dl (3.4-5.0); BLOOD UREA NITROGEN 19.1 mg/dL (7-18); MAGNESIUM 1.9 mg/dL (1.8-2.4)
[2023-04-16 08:05] LABS: CREATININE 0.3 mg/dL (0.55-1.3)
[2023-04-16 08:06] LABS: BILIRUBIN,TOTAL 0.4 mg/dL (0.2-1)
[2023-04-16 08:09] LABS: TOT PROT 3.3 g/dl (6.4-8.2)
[2023-04-16] MEDS: PANTOPRAZOLE SODIUM 40 MG VIAL IVPUSH SCH ×2 (09:33→22:16)
[2023-04-16] MEDS: AMINO ACIDS/PROTEIN HYDROLYS 30 ML LIQUID.PKT GT SCH ×2 (09:33→17:38)
[2023-04-16] MEDS: ESCITALOPRAM OXALATE 5 MG/5 ML NGT SCH (09:37)
[2023-04-16] MEDS ORDERED: FUROSEMIDE 20 MG TABLET (FP) PO ONE (14:53)
[2023-04-16] MEDS: CHLORHEXIDINE GLUCONATE 4% CLEANSER FOR DECOLONIZATION TP SCH (22:15)
[2023-04-17] MEDS: MIDODRINE HCL 5 MG TABLET PO SCH ×3 (03:29→17:36)
[2023-04-17] MEDS: PIPERACILLIN/TAZOB 3.375 GM 3.375 GM in DEXTROSE 5%-WATER - 50 ML IVPB SCH ×3 (03:29→17:37)
[2023-04-17] MEDS: LYTES/YERBA SANTA 60 ML SPRAY MM SCH ×4 (04:56→21:59)
[2023-04-17] MEDS ORDERED: INSULIN (NOVOLOG) ASPART 100 UNITS/ML 10ML VIAL ONE (06:02)
[2023-04-17] MEDS: VANCOMYCIN 250 MG/5 ML ORAL SOLUTION GT SCH ×4 (06:03→23:14)
[2023-04-17] MEDS: INSULIN (LEVEMIR) 100 UNITS/ML UNITS SQ SCH (06:40)
[2023-04-17] MEDS: INSULIN SLIDING SCALE (NOVOLOG) 1 VIAL SQ SCH ×4 (06:41→22:19)
[2023-04-17 07:12] LABS: BASO % 0.6 % (0-2.0); HEMATOCRIT 24.7 % (35.4-49); HEMOGLOBIN 8.1 GM/dL (11.7-16.9); LYMPH % 3.3 % (8-40); MCH 29.2 pg (25.7-33.7); MCHC 32.9 g/dl (32.0-35.9); MEAN CELL VOLUME 88.8 fl (80-96); MONO % 6.9 % (3.8-10.2); NEUT % 84.2 % (42.8-82.8); PLATELET COUNT 365 10^3/uL (134-434); RBC 2.78 M/mm3 (4.00-5.60); RDW 15.7 % (11.9-15.9); WHITE BLOOD COUNT 9.4 K/mm3 (4.0-10.0)
[2023-04-17 07:19] LABS: POTASSIUM 4.4 mmol/L (3.5-5.1)
[2023-04-17 07:27] LABS: CALCIUM 7.8 mg/dL (8.5-10.1)
[2023-04-17 07:28] LABS: ALBUMIN 1.1 g/dl (3.4-5.0); BLOOD UREA NITROGEN 17.5 mg/dL (7-18); MAGNESIUM 1.8 mg/dL (1.8-2.4)
[2023-04-17 07:31] LABS: CREATININE 0.3 mg/dL (0.55-1.3)
[2023-04-17 07:33] LABS: BILIRUBIN,TOTAL 0.2 mg/dL (0.2-1); TOT PROT 3.3 g/dl (6.4-8.2)
[2023-04-17] MEDS: PANTOPRAZOLE SODIUM 40 MG VIAL IVPUSH SCH ×2 (09:58→21:59)
[2023-04-17] MEDS: ESCITALOPRAM OXALATE 5 MG/5 ML NGT SCH (09:58)
[2023-04-17] MEDS: AMINO ACIDS/PROTEIN HYDROLYS 30 ML LIQUID.PKT GT SCH ×2 (09:59→17:35)
[2023-04-17] MEDS: CHLORHEXIDINE GLUCONATE 4% CLEANSER FOR DECOLONIZATION TP SCH (21:59)
[2023-04-18] MEDS: PIPERACILLIN/TAZOB 3.375 GM 3.375 GM in DEXTROSE 5%-WATER - 50 ML IVPB SCH ×3 (01:41→17:21)
[2023-04-18] MEDS: MIDODRINE HCL 5 MG TABLET PO SCH ×3 (01:41→17:32)
[2023-04-18] MEDS: VANCOMYCIN 250 MG/5 ML ORAL SOLUTION GT SCH ×4 (06:05→23:06)
[2023-04-18] MEDS: LYTES/YERBA SANTA 60 ML SPRAY MM SCH ×4 (06:05→23:06)
[2023-04-18] MEDS: INSULIN SLIDING SCALE (NOVOLOG) 1 VIAL SQ SCH ×4 (06:12→21:12)
[2023-04-18] MEDS: INSULIN (LEVEMIR) 100 UNITS/ML UNITS SQ SCH (06:12)
[2023-04-18 07:06] LABS: BASO % 0.6 % (0-2.0); EOS % 4.2 % (0-4.5); HEMATOCRIT 23.5 % (35.4-49); HEMOGLOBIN 7.9 GM/dL (11.7-16.9); LYMPH % 3.2 % (8-40); MCH 29.8 pg (25.7-33.7); MCHC 33.6 g/dl (32.0-35.9); MEAN CELL VOLUME 88.8 fl (80-96); MEAN PLT VOLUME 9.1 fl (7.5-11.1); MONO % 6.9 % (3.8-10.2); NEUT % 85.1 % (42.8-82.8); PLATELET COUNT 346 10^3/uL (134-434); RBC 2.64 M/mm3 (4.00-5.60); RDW 15.6 % (11.9-15.9); WHITE BLOOD COUNT 9.4 K/mm3 (4.0-10.0)
[2023-04-18 07:19] LABS: POTASSIUM 4.6 mmol/L (3.5-5.1)
[2023-04-18 07:26] LABS: ALBUMIN 1.1 g/dl (3.4-5.0); BLOOD UREA NITROGEN 19.4 mg/dL (7-18); CALCIUM 7.6 mg/dL (8.5-10.1); MAGNESIUM 1.8 mg/dL (1.8-2.4)
[2023-04-18 07:29] LABS: CREATININE 0.4 mg/dL (0.55-1.3)
[2023-04-18 07:31] LABS: BILIRUBIN,TOTAL 0.1 mg/dL (0.2-1); TOT PROT 3.3 g/dl (6.4-8.2)
[2023-04-18] MEDS: AMINO ACIDS/PROTEIN HYDROLYS 30 ML LIQUID.PKT GT SCH ×2 (08:58→17:35)
[2023-04-18] MEDS: PANTOPRAZOLE SODIUM 40 MG VIAL IVPUSH SCH ×2 (09:47→21:12)
[2023-04-18] MEDS: ESCITALOPRAM OXALATE 5 MG/5 ML NGT SCH (09:48)
[2023-04-18] MEDS ORDERED: fentaNYL 12mcg/hr PATCH.TD72 TD SCH (10:00)
[2023-04-18] MEDS: CHLORHEXIDINE GLUCONATE 4% CLEANSER FOR DECOLONIZATION TP SCH (21:13)
[2023-04-19] MEDS: MIDODRINE HCL 5 MG TABLET PO SCH ×3 (02:40→18:48)
[2023-04-19] MEDS: PIPERACILLIN/TAZOB 3.375 GM 3.375 GM in DEXTROSE 5%-WATER - 50 ML IVPB SCH ×3 (02:40→18:43)
[2023-04-19] MEDS: LYTES/YERBA SANTA 60 ML SPRAY MM SCH ×4 (05:48→22:44)
[2023-04-19] MEDS: VANCOMYCIN 250 MG/5 ML ORAL SOLUTION GT SCH ×4 (05:49→23:37)
[2023-04-19] MEDS: INSULIN (LEVEMIR) 100 UNITS/ML UNITS SQ SCH (06:07)
[2023-04-19] MEDS: INSULIN SLIDING SCALE (NOVOLOG) 1 VIAL SQ SCH ×4 (06:07→21:34)
[2023-04-19 07:28] LABS: BASO % 0.3 % (0-2.0); EOS % 2.7 % (0-4.5); HEMATOCRIT 23.4 % (35.4-49); HEMOGLOBIN 7.6 GM/dL (11.7-16.9); LYMPH % 1.9 % (8-40); MCH 28.7 pg (25.7-33.7); MCHC 32.4 g/dl (32.0-35.9); MEAN CELL VOLUME 88.7 fl (80-96); MEAN PLT VOLUME 9.1 fl (7.5-11.1); MONO % 5.6 % (3.8-10.2); NEUT % 89.5 % (42.8-82.8); PLATELET COUNT 355 10^3/uL (134-434); RBC 2.64 M/mm3 (4.00-5.60); RDW 15.8 % (11.9-15.9); WHITE BLOOD COUNT 12.4 K/mm3 (4.0-10.0)
[2023-04-19 07:41] LABS: POTASSIUM 4.4 mmol/L (3.5-5.1)
[2023-04-19 07:45] LABS: ALBUMIN 1.1 g/dl (3.4-5.0); BLOOD UREA NITROGEN 18.2 mg/dL (7-18); CALCIUM 7.6 mg/dL (8.5-10.1); MAGNESIUM 1.8 mg/dL (1.8-2.4)
[2023-04-19 07:48] LABS: CREATININE 0.3 mg/dL (0.55-1.3)
[2023-04-19 07:50] LABS: BILIRUBIN,TOTAL 0.1 mg/dL (0.2-1); TOT PROT 3.3 g/dl (6.4-8.2)
[2023-04-19] MEDS ORDERED: ACETAMINOPHEN 1000 MG/100 ML BAG IVPB PRN (08:55)
[2023-04-19] MEDS: AMINO ACIDS/PROTEIN HYDROLYS 30 ML LIQUID.PKT GT SCH ×2 (08:59→18:47)
[2023-04-19] MEDS: ESCITALOPRAM OXALATE 5 MG/5 ML NGT SCH (09:53)
[2023-04-19] MEDS: PANTOPRAZOLE SODIUM 40 MG VIAL IVPUSH SCH ×2 (09:53→21:34)
[2023-04-19] MEDS ORDERED: PIPERACILLIN/TAZOBACTAM 3.375 GM VIAL IVPB ONE (18:38)
[2023-04-19] MEDS ORDERED: INSULIN (NOVOLOG) ASPART 100 UNITS/ML 10ML VIAL ONE (21:22)
[2023-04-19] MEDS: CHLORHEXIDINE GLUCONATE 4% CLEANSER FOR DECOLONIZATION TP SCH (21:34)
[2023-04-20] MEDS: PIPERACILLIN/TAZOB 3.375 GM 3.375 GM in DEXTROSE 5%-WATER - 50 ML IVPB SCH ×3 (02:53→18:27)
[2023-04-20] MEDS: MIDODRINE HCL 5 MG TABLET PO SCH ×3 (02:54→18:27)
[2023-04-20] MEDS: LYTES/YERBA SANTA 60 ML SPRAY MM SCH ×4 (04:13→22:45)
[2023-04-20] MEDS: INSULIN SLIDING SCALE (NOVOLOG) 1 VIAL SQ SCH ×4 (06:22→21:26)
[2023-04-20] MEDS: INSULIN (LEVEMIR) 100 UNITS/ML UNITS SQ SCH (06:22)
[2023-04-20] MEDS: VANCOMYCIN 250 MG/5 ML ORAL SOLUTION GT SCH ×4 (06:22→22:59)
[2023-04-20] MEDS ORDERED: FENTANYL PATCH WASTE TD PRN (09:42)
[2023-04-20] MEDS ORDERED: fentaNYL 25mcg/hr PATCH.TD72 TD SCH (09:45)
[2023-04-20] MEDS: ESCITALOPRAM OXALATE 5 MG/5 ML NGT SCH (10:14)
[2023-04-20] MEDS: AMINO ACIDS/PROTEIN HYDROLYS 30 ML LIQUID.PKT GT SCH ×2 (10:15→18:27)
[2023-04-20] MEDS: PANTOPRAZOLE SODIUM 40 MG VIAL IVPUSH SCH ×2 (10:15→21:26)
[2023-04-20] MEDS ORDERED: FUROSEMIDE 40 MG/5 ML UNIT-DOSE CUP PO ONE (12:06)
[2023-04-20] MEDS: CHLORHEXIDINE GLUCONATE 4% CLEANSER FOR DECOLONIZATION TP SCH (21:26)
[2023-04-21] MEDS: PIPERACILLIN/TAZOB 3.375 GM 3.375 GM in DEXTROSE 5%-WATER - 50 ML IVPB SCH ×3 (01:28→18:13)
[2023-04-21] MEDS: MIDODRINE HCL 5 MG TABLET PO SCH ×3 (01:29→18:20)
[2023-04-21] MEDS: LYTES/YERBA SANTA 60 ML SPRAY MM SCH ×4 (05:03→22:14)
[2023-04-21] MEDS: INSULIN (LEVEMIR) 100 UNITS/ML UNITS SQ SCH (06:15)
[2023-04-21] MEDS: VANCOMYCIN 250 MG/5 ML ORAL SOLUTION GT SCH ×4 (06:15→23:01)
[2023-04-21] MEDS: INSULIN SLIDING SCALE (NOVOLOG) 1 VIAL SQ SCH ×4 (06:16→21:24)
[2023-04-21 07:28] LABS: BASO % 0.2 % (0-2.0); EOS % 3.8 % (0-4.5); HEMATOCRIT 23.1 % (35.4-49); HEMOGLOBIN 7.5 GM/dL (11.7-16.9); LYMPH % 1.8 % (8-40); MCH 28.9 pg (25.7-33.7); MCHC 32.4 g/dl (32.0-35.9); MEAN CELL VOLUME 89.4 fl (80-96); MEAN PLT VOLUME 8.9 fl (7.5-11.1); MONO % 6.5 % (3.8-10.2); NEUT % 87.7 % (42.8-82.8); PLATELET COUNT 370 10^3/uL (134-434); RBC 2.58 M/mm3 (4.00-5.60); RDW 16.4 % (11.9-15.9); WHITE BLOOD COUNT 10.6 K/mm3 (4.0-10.0)
[2023-04-21 07:37] LABS: POTASSIUM 4.7 mmol/L (3.5-5.1)
[2023-04-21 07:41] LABS: ALBUMIN 1.2 g/dl (3.4-5.0); BLOOD UREA NITROGEN 17.6 mg/dL (7-18); CALCIUM 7.7 mg/dL (8.5-10.1); MAGNESIUM 1.9 mg/dL (1.8-2.4)
[2023-04-21 07:44] LABS: CREATININE 0.3 mg/dL (0.55-1.3)
[2023-04-21 07:46] LABS: BILIRUBIN,TOTAL 0.3 mg/dL (0.2-1); TOT PROT 3.6 g/dl (6.4-8.2)
[2023-04-21] MEDS ORDERED: FENTANYL PATCH WASTE TD PRN (09:56)
[2023-04-21] MEDS: AMINO ACIDS/PROTEIN HYDROLYS 30 ML LIQUID.PKT GT SCH ×2 (11:07→16:57)
[2023-04-21] MEDS: ESCITALOPRAM OXALATE 5 MG/5 ML NGT SCH (11:08)
[2023-04-21] MEDS: PANTOPRAZOLE SODIUM 40 MG VIAL IVPUSH SCH ×2 (11:08→21:24)
[2023-04-21] MEDS: CHLORHEXIDINE GLUCONATE 4% CLEANSER FOR DECOLONIZATION TP SCH (21:24)
[2023-04-22] MEDS: PIPERACILLIN/TAZOB 3.375 GM 3.375 GM in DEXTROSE 5%-WATER - 50 ML IVPB SCH ×3 (01:30→17:40)
[2023-04-22] MEDS: MIDODRINE HCL 5 MG TABLET PO SCH ×3 (01:30→18:21)
[2023-04-22 04:29] VITALS: TEMP 98.1
[2023-04-22] MEDS: LYTES/YERBA SANTA 60 ML SPRAY MM SCH ×3 (05:27→17:02)
[2023-04-22] MEDS: INSULIN (LEVEMIR) 100 UNITS/ML UNITS SQ SCH (06:16)
[2023-04-22] MEDS: VANCOMYCIN 250 MG/5 ML ORAL SOLUTION GT SCH ×3 (06:16→17:40)
[2023-04-22] MEDS: INSULIN SLIDING SCALE (NOVOLOG) 1 VIAL SQ SCH ×3 (06:17→17:11)
[2023-04-22 08:07] LABS: BASO % 0.3 % (0-2.0); EOS % 4.9 % (0-4.5); HEMATOCRIT 21.9 % (35.4-49); LYMPH % 2.4 % (8-40); MCH 28.8 pg (25.7-33.7); MCHC 32.1 g/dl (32.0-35.9); MEAN CELL VOLUME 89.6 fl (80-96); MONO % 8.4 % (3.8-10.2); PLATELET COUNT 360 10^3/uL (134-434); RBC 2.44 M/mm3 (4.00-5.60); RDW 16.4 % (11.9-15.9); WHITE BLOOD COUNT 8.7 K/mm3 (4.0-10.0)
[2023-04-22 08:18] LABS: POTASSIUM 4.8 mmol/L (3.5-5.1)
[2023-04-22 08:21] LABS: CALCIUM 7.5 mg/dL (8.5-10.1)
[2023-04-22 08:22] LABS: ALBUMIN 1.2 g/dl (3.4-5.0); BLOOD UREA NITROGEN 15.8 mg/dL (7-18); MAGNESIUM 1.9 mg/dL (1.8-2.4)
[2023-04-22 08:25] LABS: CREATININE 0.3 mg/dL (0.55-1.3)
[2023-04-22 08:26] LABS: TOT PROT 3.5 g/dl (6.4-8.2)
[2023-04-22 08:27] LABS: BILIRUBIN,TOTAL 0.1 mg/dL (0.2-1)
[2023-04-22] MEDS: ESCITALOPRAM OXALATE 5 MG/5 ML NGT SCH (10:56)
[2023-04-22] MEDS: AMINO ACIDS/PROTEIN HYDROLYS 30 ML LIQUID.PKT GT SCH ×2 (10:56→17:40)
[2023-04-22] MEDS: PANTOPRAZOLE SODIUM 40 MG VIAL IVPUSH SCH (10:56)
[2023-04-22 18:23] VITALS: BP 107/57; PULSE 89; RESP 16
== END 2023-04-22 18:55 | DRG 870 ==
LOC: JER 22:51 → JERBED 03-24 02:08 → J2W 03-24 08:18 → JICU 03-29 15:22 → J5S 04-03 15:14 → JICU 04-08 16:27 → J2W 04-13 16:36
PROVIDERS: ADMIT Internal Medicine; ATTEND Nurse Practitioner Acute Care
PROC: 5A1955Z Respiratory Ventilation, Greater than 96 Consecutive Hours (ICD-10-PCS; principal; 2023-03-24)
PROC: 30233N1 Transfusion of Nonautologous Red Blood Cells into Peripheral Vein, Percutaneous Approach (ICD-10-PCS; 2023-03-26)
PROC: 05HM33Z Insertion of Infusion Device into Right Internal Jugular Vein, Percutaneous Approach (ICD-10-PCS; 2023-03-29)
PROC: B543ZZA Ultrasonography of Right Jugular Veins, Guidance (ICD-10-PCS; 2023-03-29)
PROC: 0DJ08ZZ Inspection of Upper Intestinal Tract, Via Natural or Artificial Opening Endoscopic (ICD-10-PCS; 2023-04-01)
PROC: 0DBM8ZX Excision of Descending Colon, Via Natural or Artificial Opening Endoscopic, Diagnostic (ICD-10-PCS; 2023-04-03)
PROC: 0DJ08ZZ Inspection of Upper Intestinal Tract, Via Natural or Artificial Opening Endoscopic (ICD-10-PCS; 2023-04-10)
PROC: 05HC33Z Insertion of Infusion Device into Left Basilic Vein, Percutaneous Approach (ICD-10-PCS; 2023-04-10)
DX: A41.9 Sepsis, unspecified organism (principal); E43 Unspecified severe protein-calorie malnutrition; J18.9 Pneumonia, unspecified organism; L89.154 Pressure ulcer of sacral region, stage 4; J96.20 Acute and chronic respiratory failure, unspecified whether with hypoxia or hypercapnia; R65.21 Severe sepsis with septic shock; R64 Cachexia; N39.0 Urinary tract infection, site not specified; N17.9 Acute kidney failure, unspecified; Z68.1 Body mass index [BMI] 19.9 or less, adult; A04.72 Enterocolitis due to Clostridium difficile, not specified as recurrent; D62 Acute posthemorrhagic anemia; E87.0 Hyperosmolality and hypernatremia; J95.851 Ventilator associated pneumonia; K92.2 Gastrointestinal hemorrhage, unspecified; E87.20 Acidosis, unspecified; C88.0 Waldenstrom macroglobulinemia; Z93.0 Tracheostomy status; K52.9 Noninfective gastroenteritis and colitis, unspecified; E87.5 Hyperkalemia; B95.1 Streptococcus, group B, as the cause of diseases classified elsewhere; K57.90 Diverticulosis of intestine, part unspecified, without perforation or abscess without bleeding
CPT/HCPCS: 0241U-QW; 36415; 36430; 36600; 71045-TC-FY; 71275-TC; 74174-TC; 74178-TC; 80048; 80053; 80061; 81003; 82150; 82330; 82550; 82553; 82728; 82803; 82962; 83036; 83540; 83550; 83605; 83735; 83880; 84100; 84439; 84443; 84484; 85025; 85027; 85045; 85384; 85610; 85730; 86140; 86850; 86900; 86901; 86922; 87040; 87070; 87076; 87077; 87086; 87186; 87205; 87324; 87449; 87635; 87899; 88305-TC; 93005; 93010; 93306-TC; 93970-TC; 94002; 94640; 97162-GP; 99285-25; P9058; Q9967